=== PATIENT | female | born 1960 | race Caucasian/White ===

== ENCOUNTER 2018-04-24 17:09 | Outpatient (CLI) | payer MEDICARE ==
[2018-04-24 18:01] LABS: Anion Gap 16 mmol/L (10-20); BUN (Urea Nitrogen) 11 mg/dL (9.8-20.1); Calc. Creatinine Clearance 0 mL/min (70-130); Carbon Dioxide 22 mmol/L (22-29); Chloride 102 mmol/L (98-107); Estimated GFR-MDRD 59; Glucose 372 mg/dL (70-105); Potassium 4.1 mmol/L (3.5-5.1); Sodium 136 mmol/L (136-145)
--- NOTE | 2018-04-25 12:09 | EKG ---
Test Reason : Blood Pressure : / mmHG Vent. Rate : 093 BPM Atrial Rate : 093 BPM P-R Int : 170 ms QRS Dur : 080 ms QT Int : 378 ms P-R-T Axes : 056 -06 019 degrees QTc Int : 469 ms Normal sinus rhythm Minimal voltage criteria for LVH, may be normal variant Borderline ECG No previous ECGs available Confirmed by OSVALDO MASCORRO ([id number]) on 04/25/2018 12:09:02 PM Referred By: CYRUS Confirmed By:OSVALDO MASCORRO
== END 2018-04-24 17:10 | disposition home or self-care (01) ==
LOC: LABBT 17:09
PROVIDERS: ATTEND Internal Medicine Critical Care Medicine
DX: Z01.818 Encounter for other preprocedural examination (principal); R91.8 Other nonspecific abnormal finding of lung field
CPT/HCPCS: 80048; 93005; 93010

== ENCOUNTER 2018-04-26 06:07 | Day surgery (SDC) | payer MEDICARE ==
[2018-04-24 17:35] VITALS: BMI 45.5
[2018-04-26] MEDS ORDERED: EPINEPHrine 1 MG/ML AMP ONE (06:40)
[2018-04-26] MEDS ORDERED: Lidocaine 1% (PF) 30 ML VIAL ONE (06:44)
[2018-04-26] MEDS ORDERED: Lidocaine 4% PF 5 ML AMP NEB SCH (06:45)
[2018-04-26] MEDS ORDERED: Sodium Chloride 0.9% 1,000 ML IV SCH (06:45)
[2018-04-26] MEDS ORDERED: Midazolam HCl 2 mg/2 ml Vial ONE (07:05)
[2018-04-26] MEDS ORDERED: Fentanyl 100 MCG/2 ML VIAL ONE (07:05)
[2018-04-26] MEDS ORDERED: SUGAMMADEX SODIUM 200 MG/2 ML VIAL ONE (08:39)
--- NOTE | 2018-04-26 09:06 | OP ---
DATE OF PROCEDURE: 04/26/2018 SURGEON: Dr. Andrews Morfin PROCEDURE: Fiberoptic bronchoscopy. PREOPERATIVE DIAGNOSIS: Right middle lobe mass. POSTOPERATIVE DIAGNOSIS: Circumferential narrowing of the right middle lobe bronchus with distal mas s seen under fluoroscopy. ANESTHESIA: General endotracheal anesthesia. DESCRIPTION OF PROCEDURE: The patient was brought to the endoscopy suite and placed on cardiopulmona ry monitoring. She was intubated by Anesthesia with a GlideScope. Vocal cords were normal on the in tubation with an 8-0 endotracheal tube. Tube was secured at cm at the lip. An Olympus 2.0 bronchoscope was inserted into the endotracheal tube through an adapter while the richelle ent was on volume cycle ventilation. The paty had some mucoid secretions present, the left main st em bronchus, left upper lobe, and left lower lobe were normal in appearance. The right mainstem bron chus, right upper lobe, and right lower lobe were normal in appearance. The right middle lobe was ci rcumferentially narrowed from just distal to the takeoff down to the bifurcation the medial and later al subsegments. A series of transbronchial brushings and biopsies were done in the lateral segment u nder fluoroscopic guidance where the mass was clearly visible. Endobronchial biopsies were also obta ined in the narrowed segment of the right middle lobe. Washings were obtained afterwards. The patie nt tolerated the procedure well and was sent to the recovery area in stable condition.
[2018-04-26] MEDS ORDERED: Glycopyrrolate 0.2 MG/ML 5 ML SYRINGE ONE (15:31)
[2018-04-26] MEDS ORDERED: Lidocaine 1% PF 5 ML VIAL ONE (15:31)
[2018-04-26] MEDS ORDERED: PROPOFOL 200 MG/20 ML VIAL ONE (15:31)
[2018-04-26] MEDS ORDERED: Succinylcholine Chloride 20 MG/ML 10 ml SYRINGE FS ONE (15:31)
== END 2018-04-26 10:07 | disposition home or self-care (01) ==
LOC: SDC 06:07
PROVIDERS: ATTEND Internal Medicine Critical Care Medicine
PROC: 0BB58ZX Excision of Right Middle Lobe Bronchus, Via Natural or Artificial Opening Endoscopic, Diagnostic (ICD-10-PCS; principal; 2018-04-26)
PROC: 0BD58ZX Extraction of Right Middle Lobe Bronchus, Via Natural or Artificial Opening Endoscopic, Diagnostic (ICD-10-PCS; 2018-04-26)
PROC: 0BDD8ZX Extraction of Right Middle Lung Lobe, Via Natural or Artificial Opening Endoscopic, Diagnostic (ICD-10-PCS; 2018-04-26)
DX: J20.9 Acute bronchitis, unspecified (principal); J42 Unspecified chronic bronchitis; I10 Essential (primary) hypertension; E78.5 Hyperlipidemia, unspecified; K21.9 Gastro-esophageal reflux disease without esophagitis; E11.9 Type 2 diabetes mellitus without complications; E03.9 Hypothyroidism, unspecified; Z79.899 Other long term (current) drug therapy; Z79.82 Long term (current) use of aspirin; Z79.84 Long term (current) use of oral hypoglycemic drugs
CPT/HCPCS: 36416; 76000; 87070; 87205; 88104; 88112; 88305; J0171; J2001; J2250; J2704; J3010; J7620

== ENCOUNTER 2018-05-04 09:02 | Outpatient (CLI) | payer MEDICARE ==
--- NOTE | 2018-05-04 14:22 | PET ---
PET CT: HISTORY: Right hilar lung mass. TECHNIQUE: PET scanning with CT attenuation correction was performed from the base of the brain through the prox imal thighs following the intravenous administration of 12 mCi F18-FDG in the right antecubital fossa . Imaging was performed after an uptake interval of 86 minutes. COMPARISON: None. CORRELATION: None. FINDINGS: There is a focal area of increased FDG localization in the medial aspect of the right middle lobe (cl ose to the hilum) with adjacent atelectatic change. This has a SUV of 6.4. No anoop hypermetabolism is seen in the neck, axilla, mediastinum, left hilum, abdomen, or pelvis. No hypermetabolic liver, adrenal, or skeletal lesions are seen. There is physiologic activity in the GI and tracts, and the visualized portions of the brain. IMPRESSION: Right lung malignancy. No evidence of distant metastatic disease. POS: [facility]
== END 2018-05-04 09:03 | disposition home or self-care (01) ==
LOC: PET 09:02
PROVIDERS: ATTEND Internal Medicine Critical Care Medicine
DX: R91.1 Solitary pulmonary nodule (principal); C34.91 Malignant neoplasm of unspecified part of right bronchus or lung
CPT/HCPCS: 78815; A9552

== ENCOUNTER 2018-05-21 10:02 | Inpatient (IN) | payer MEDICARE ==
[2018-05-18 16:23] VITALS: BMI 45.5
[2018-05-21 10:51] LABS: #Basophils 0.1 thou/uL (0.0-0.2); #Eosinphils 0.6 thou/uL (0.0-0.7); #Monocytes 0.6 thou/uL (0.11-0.59); #Neutrophils 8.4 thou/uL (1.40-6.50); %Eosinophils 4.8 % (0.0-10.0); %Lymphocytes 23.2 % (21.0-51.0); %Monocytes 4.7 % (0.0-10.0); %Neutrophils 66.2 % (42.0-75.0); Hemoglobin 10.9 g/dL (12.0-16.0); Mean Corpuscular HGB CONC 32.4 g/dL (32.0-36.0); Mean Corpuscular Hemoglobin 25.6 pg (27.0-31.0); Mean Corpuscular Volume 78.8 fL (78.0-98.0); Mean Platelet Volume 6.6 fL (7.4-10.4); Platelet Count 388 thou/uL (130-400); RBC Distribution Width 15.9 % (11.5-14.5); Red Blood Cell (RBC) Count 4.26 mill/uL (4.20-5.40); White Blood Cell (WBC) Count 12.7 thou/uL (4.8-10.8)
[2018-05-21] MEDS ORDERED: Fentanyl 100 MCG/2 ML VIAL ONE ×2 (11:12→15:14)
[2018-05-21] MEDS ORDERED: Midazolam HCl 2 mg/2 ml Vial ONE (11:12)
[2018-05-21 11:13] LABS: Anion Gap 16 mmol/L (10-20); BUN (Urea Nitrogen) 24 mg/dL (9.8-20.1); Calc. Creatinine Clearance 122 mL/min (70-130); Calcium 9.2 mg/dL (7.8-10.44); Carbon Dioxide 22 mmol/L (22-29); Chloride 104 mmol/L (98-107); Estimated GFR-MDRD 64; Glucose 241 mg/dL (70-105); Potassium 3.9 mmol/L (3.5-5.1); Sodium 138 mmol/L (136-145)
[2018-05-21] MEDS ORDERED: Fentanyl/Bupivacaine 250 ML in Premix Bag 1 BAG EPIDURAL SCH (11:45)
[2018-05-21] MEDS ORDERED: Bupivacaine 0.25% 10 ML VIAL EPIDURAL PRN (11:45)
[2018-05-21] MEDS ORDERED: Fentanyl 250 MCG/5 ML VIAL ONE (11:46)
[2018-05-21] MEDS ORDERED: traMADol HCl 50 MG TAB PO PRN (12:00)
[2018-05-21] MEDS ORDERED: Promethazine HCl 25 MG/ML VIAL IM PRN ×2 (12:00→16:58)
[2018-05-21] MEDS ORDERED: Zolpidem Tartrate 5 MG TAB PO PRN (12:00)
[2018-05-21] MEDS ORDERED: HYDROcodone/Acetaminophen 5/325 mg Tablet PO PRN ×3 (12:00→17:28)
[2018-05-21] MEDS ORDERED: Hydrocerin (Eucerin) Cream 120 gm Jar TOP PRN (12:00)
[2018-05-21] MEDS ORDERED: diphenhydrAMINE 25 MG CAP PO PRN (12:00)
[2018-05-21] MEDS ORDERED: diphenhydrAMINE 50 MG/ML VIAL IVP PRN (12:00)
[2018-05-21] MEDS ORDERED: Naloxone HCl 0.4 mg/ml Vial IV PRN (12:00)
[2018-05-21] MEDS ORDERED: Ondansetron HCl/PF 4 MG/2 ML Vial IVP PRN ×3 (12:00→17:28)
[2018-05-21] MEDS ORDERED: Naloxone HCl 0.4 mg/ml Vial IVP PRN (12:00)
[2018-05-21] MEDS ORDERED: Promethazine HCl 25 MG SUPP PR PRN (12:00)
[2018-05-21] MEDS ORDERED: diphenhydrAMINE 50 MG/ML VIAL IM PRN (12:00)
[2018-05-21] MEDS ORDERED: Bupivacaine/Epinephrine 0.25% 30 ML VIAL ONE (12:44)
[2018-05-21] MEDS ORDERED: Ondansetron HCl/PF 4 MG/2 ML Vial ONE (12:45)
[2018-05-21] MEDS ORDERED: Labetalol HCl 100 MG/20 ML VIAL ONE (12:45)
[2018-05-21] MEDS ORDERED: Glycopyrrolate 0.2 MG/ML 5 ML SYRINGE ONE (12:45)
[2018-05-21] MEDS ORDERED: Dexamethasone 20 MG/5 ML VIAL ONE (12:45)
[2018-05-21] MEDS ORDERED: Lidocaine 1% PF 5 ML VIAL ONE (12:45)
[2018-05-21] MEDS ORDERED: PROPOFOL 200 MG/20 ML VIAL ONE (12:45)
[2018-05-21] MEDS ORDERED: PHENYLEPHRINE-NS 100 MCG/ML 10 ML SYRINGE ONE (12:45)
[2018-05-21] MEDS ORDERED: CEFAZOLIN/Water 2 GM/20 ML SYRINGE ONE (12:57)
[2018-05-21] MEDS ORDERED: Albuterol Sulfate HFA (OR ONLY) ONE (15:14)
[2018-05-21] MEDS ORDERED: Rocuronium Bromide 50 MG/5 ML VIAL ONE (15:57)
[2018-05-21] MEDS ORDERED: Promethazine HCl 25 MG/ML VIAL SLOW IVP PRN (16:58)
[2018-05-21] MEDS ORDERED: Phenylephrine 10 MG/NS 250 ML 250 ML IVPB PRN (17:28)
[2018-05-21] MEDS ORDERED: Fentanyl 100 MCG/2 ML VIAL SLOW IVP PRN (17:28)
[2018-05-21] MEDS: Ketorolac Tromethamine 30 MG/ML VIAL IVP PRN (18:05)
--- NOTE | 2018-05-21 18:06 | RAD ---
SINGLE VIEW CHEST: HISTORY: Status post thoracotomy. COMPARISON: None. FINDINGS: A single view of the chest shows an enlarged cardiomediastinal silhouette. There are two right-sided chest tubes. No pneumothorax is seen. Atelectasis in seen in both lung bases. IMPRESSION: 1. Status post right thoracotomy without evidence of pneumothorax. 2. Bibasilar atelectasis. 3. Cardiomegaly. POS: [facility]
[2018-05-21] MEDS: Sodium Chloride 0.9% 1,000 ML IV SCH (18:07)
[2018-05-21] MEDS: CEFAZOLIN/Water 2 GM/20 ML SYRINGE SLOW IVP SCH (21:21)
[2018-05-21] MEDS: Insulin Regular 300 UNITS/3 ML VIAL SC PRN (21:22)
--- NOTE | 2018-05-21 22:17 | OP ---
DATE OF PROCEDURE: 05/21/2018 PREOPERATIVE DIAGNOSIS: Right hilar mass. POSTOPERATIVE DIAGNOSIS: No obvious right hilar mass. SURGEON: Mitchel Dobbins M.D. ANESTHESIA: General. PROCEDURE: Right thoracoscopy/posterior lateral thoracotomy with right middle lobectomy and mediasti nal node dissection. SURGEON: Mitchel Dobbins M.D. ANESTHESIA: General. EBL: Less than 100. PROCEDURE IN DETAIL: After adequate anesthesia had been obtained with a double-lumen endotracheal tu be, which took multiple efforts by the anesthesiologist, the patient was placed in the left lateral d ecubitus position and padded. After prepping and draping, an 11 mm port was placed and the scope ins erted. Visualization of the lung demonstrated no gross abnormalities. Following this, it was decide d that full thoracotomy was most appropriate to ensure that a mass would not be missed. After muscle sparing thoracotomy, the chest was entered through the fifth intercostal space. Inferior pulmonary ligament was taken down. Node was sampled from the esophageal area as well as between the upper lobe and middle lobe bronchial takeoff. Following this exposure posteriorly, anterior exposure was benigno ed out mobilizing from the superior to the inferior pulmonary vein. The fissure was then partially t aken down to allow full visualization of the middle lobe bronchus. Middle lobe artery was then also visualized and there were no masses here. Lymph node was sent as a second lymph node specimen from t he hilar area. Following this, superior mediastinum had mobilization and the R4 region was skeletoni zed with lymph nodes. At this point, the fissure between the upper and middle lobe was begun to be m obilized as no masses could be palpated. There was some thickening in this fissure with induration, but no obvious mass. At this time, it was elected to go ahead and proceed with a right middle lobect elke as bronchoscopy had previously shown some narrowing of the middle lobe bronchus and subsequent PE T scan had shown that the patient was developing middle lobe syndrome with atelectasis. The bronchus to the middle lobe was divided with green load of cheo and then the pulmonary veins and the middl e lobe arteries were divided with two separate vascular firings. The fissure was then completed with green loads. This was then sent for permanent section. The bronchus was tested for leak and there was none. Two chest tubes were then placed following which the ribs were reapproximated with double- stranded catgut suture and the subcutaneous tissue and skin were closed. The patient is to be taken to the ICU in guarded condition.
[2018-05-22] MEDS: Ketorolac Tromethamine 30 MG/ML VIAL IVP PRN (00:44)
[2018-05-22] MEDS: Fentanyl 100 MCG/2 ML VIAL SLOW IVP PRN ×2 (01:10→04:33)
[2018-05-22] MEDS: HYDROcodone/Acetaminophen 5/325 mg Tablet PO PRN ×3 (02:11→21:40)
[2018-05-22] MEDS: CEFAZOLIN/Water 2 GM/20 ML SYRINGE SLOW IVP SCH (05:27)
[2018-05-22] MEDS: Levothyroxine 150 MCG TAB PO SCH (05:27)
[2018-05-22] MEDS: Sodium Chloride 0.9% 1,000 ML IV SCH ×2 (05:31→10:28)
[2018-05-22 05:41] LABS: #Lymphocytes 0.9 thou/uL (1.20-3.40); #Monocytes 0.7 thou/uL (0.11-0.59); %Basophils 0.1 % (0.0-1.0); %Eosinophils 0.1 % (0.0-10.0); %Lymphocytes 5.2 % (21.0-51.0); %Monocytes 3.9 % (0.0-10.0); %Neutrophils 90.8 % (42.0-75.0); Hemoglobin 9.5 g/dL (12.0-16.0); Mean Corpuscular HGB CONC 33.1 g/dL (32.0-36.0); Mean Corpuscular Hemoglobin 26.1 pg (27.0-31.0); Mean Corpuscular Volume 78.8 fL (78.0-98.0); Mean Platelet Volume 7.3 fL (7.4-10.4); Platelet Count 341 thou/uL (130-400); RBC Distribution Width 15.6 % (11.5-14.5); Red Blood Cell (RBC) Count 3.62 mill/uL (4.20-5.40); White Blood Cell (WBC) Count 17.6 thou/uL (4.8-10.8)
[2018-05-22 05:45] LABS: Anion Gap 14 mmol/L (10-20); BUN (Urea Nitrogen) 25 mg/dL (9.8-20.1); Calc. Creatinine Clearance 109 mL/min (70-130); Calcium 8.4 mg/dL (7.8-10.44); Carbon Dioxide 21 mmol/L (22-29); Chloride 100 mmol/L (98-107); Estimated GFR-MDRD 56; Glucose 523 mg/dL (70-105); Potassium 4.3 mmol/L (3.5-5.1); Sodium 131 mmol/L (136-145)
[2018-05-22] MEDS: Insulin Regular 300 UNITS/3 ML VIAL SC PRN ×4 (05:57→21:45)
[2018-05-22] MEDS ORDERED: Dextrose 50% Abboject 50 ML SYRINGE IVP PRN (10:29)
[2018-05-22] MEDS ORDERED: Dextrose 5% in Water 1,000 ML IV PRN (10:29)
[2018-05-22] MEDS: Insulin Glargine 30 UNITS in Pre-Filled Syringe 1 EACH SC SCH ×2 (10:33→21:44)
--- NOTE | 2018-05-22 11:23 | PRG ---
DATE OF SERVICE: 05/22/2018 SUBJECTIVE: Ms. Hicks was seen in the ICU this morning. She is status post thoracotomy yesterday. She did have a right middle lobectomy performed. She is doing well, has no acute complaints. PHYSICAL EXAMINATION: VITAL SIGNS: Temperature 97, pulse 87, blood pressure 131/59, and O2 sat 91% on room air, respirator y rate 15. She has a small air leak in her Pleur-evac. HEENT: Unremarkable. NECK: No JVD. LUNGS: Clear bilaterally. CARDIAC: S1 and S2, regular. ABDOMEN: Soft. EXTREMITIES: No edema. LABORATORY DATA: White blood cell count 17.6, hematocrit 28.6, platelet count 341. Sodium 131, pota ssium 4.3, chloride 100, CO2 of 21, BUN 25, creatinine 1.0. Glucose 521. ASSESSMENT: The patient is status post right middle lobectomy for a presumed lung mass. Interesting ly, the mass was not seen during the procedure yesterday. This could have been a right middle lobe s yndrome that was transient. PLAN: Continue chest tube drainage. I assume she can probably be transferred out to the floor. Blo od sugars need to be a great addressed with insulin.
--- NOTE | 2018-05-22 11:24 | RAD ---
AP VIEW CHEST: 05/22/2018 HISTORY: Status post thoracotomy. COMPARISON: 05/21/2018 FINDINGS: AP view chest demonstrates two right-sided chest tubes. Surgical clips are seen in the right hilar r egion. Mild cardiomegaly is seen. Pulmonary vascular congestion is seen. Subcutaneous emphysema is seen in the right chest wall. No significant interval changes noted since the previous exam. IMPRESSION: Stable anterior-posterior view of the chest with two right-sided chest tubes in place without evidenc e of pneumothorax. Surgical changes seen in the right hilar region. POS: [facility]
[2018-05-22] MEDS ORDERED: metFORMIN 500 MG TAB PO SCH (11:45)
[2018-05-22] MEDS: metFORMIN 500 MG TAB PO SCH (17:32)
[2018-05-23] MEDS ORDERED: Fentanyl/Bupivacaine 250 ML in Premix Bag 1 BAG EPIDURAL SCH (00:45)
[2018-05-23] MEDS: HYDROcodone/Acetaminophen 5/325 mg Tablet PO PRN ×4 (04:23→20:44)
[2018-05-23] MEDS: Fentanyl 100 MCG/2 ML VIAL SLOW IVP PRN (06:17)
[2018-05-23] MEDS: Levothyroxine 150 MCG TAB PO SCH (06:20)
[2018-05-23] MEDS: Insulin Regular 300 UNITS/3 ML VIAL SC PRN ×4 (06:23→21:45)
--- NOTE | 2018-05-23 08:18 | RAD ---
ONE VIEW CHEST: Comparison: 05-22-18 History: Thoracotomy. FINDINGS: Stable two right sided chest tubes. Stable right sided subcutaneous emphysema. No definite pneumothor ax. Chronic changes of the lung bases. IMPRESSION: No significant interval change. POS: [facility]
[2018-05-23] MEDS: Hydrochlorothiazide 25 MG TAB PO SCH (08:22)
[2018-05-23] MEDS: metFORMIN 500 MG TAB PO SCH ×2 (08:23→16:12)
[2018-05-23] MEDS ORDERED: Non-Formulary Item 1 EACH (Canagliflozin [Invokana] 300 MG) PO SCH (09:00)
--- NOTE | 2018-05-23 09:49 | PRG ---
DATE OF SERVICE: 05/23/2018. SUBJECTIVE: The patient is currently sleeping, does not appear to be in any distress. PHYSICAL EXAMINATION: VITAL SIGNS: Temperature is 99.7 with a T-max of 100.7, pulse 95, blood pressure 126/52, O2 sat 92%. HEENT: Unremarkable. NECK: No JVD. LUNGS: Clear anteriorly. Chest tube shows no air leak. CARDIOVASCULAR: S1 and S2 regular. ABDOMEN: Soft. EXTREMITIES: No edema. LABORATORY DATA: No labs were obtained today. ASSESSMENT: 1. Status post right middle lobectomy. Pathology is pending. 2. Grossly elevated blood sugar. PLAN: 1. The patient is back on her Lantus insulin. Hopefully, that will equilibrate today. 2. Anticipate her being transferred out to the surgical floor today. Increase activity as tolerated .
[2018-05-23 10:56] LABS: Hemoglobin A1c 11.4 % (4.0-6.0)
[2018-05-23] MEDS: Insulin Glargine 30 UNITS in Pre-Filled Syringe 1 EACH SC SCH ×2 (11:39→21:44)
[2018-05-24] MEDS: HYDROcodone/Acetaminophen 5/325 mg Tablet PO PRN ×5 (00:59→20:18)
[2018-05-24] MEDS: Levothyroxine 150 MCG TAB PO SCH (06:07)
[2018-05-24] MEDS: Insulin Regular 300 UNITS/3 ML VIAL SC PRN ×4 (06:35→21:36)
--- NOTE | 2018-05-24 07:39 | RAD ---
UPRIGHT PORTABLE CHEST 1 VIEW: HISTORY: A 58-year-old female status post thoracotomy. FINDINGS: Right chest tube in place with postop changes in the right chest with minimal subcutaneous emphysema. Patchy parenchymal changes in the right perihilar region and right lower lobe appear somewhat more marked than on the prior study, particularly in the right infrahilar region raising concern for the p ossibility of some developing atelectasis or pneumonia. Blunting of the left costophrenic angle. IMPRESSION: Pleural and parenchymal opacity changes bilaterally showing some more confluent-appearing parenchymal changes in the right infrahilar region raising concern for the possibility of some atelectasis or de veloping pneumonia. No significant pneumothorax. Stable left chest. Continue short-term followup. POS: [facility]
[2018-05-24] MEDS: [UNRECOGNIZED DRUG - OTHER] EPIDURAL SCH (08:20)
[2018-05-24] MEDS: FENTANYL CITRATE EPIDURAL SCH (08:20)
[2018-05-24] MEDS: BUPIVACAINE EPIDURAL SCH (08:20)
[2018-05-24] MEDS: Insulin Glargine 30 UNITS in Pre-Filled Syringe 1 EACH SC SCH (08:25)
[2018-05-24] MEDS: Hydrochlorothiazide 25 MG TAB PO SCH (08:25)
[2018-05-24] MEDS: metFORMIN 500 MG TAB PO SCH ×2 (08:25→17:32)
--- NOTE | 2018-05-24 10:29 | PRG ---
DATE OF SERVICE: 05/24/2018 She is complaining of pain in her surgical site. PHYSICAL EXAMINATION: VITAL SIGNS: Temperature 98.5, pulse 92, respirations 15, O2 sat 95%, blood pressure 112/61. HEENT: Unremarkable. NECK: No JVD. LUNGS: Fairly clear anteriorly. CARDIOVASCULAR: S1 and S2 regular. ABDOMEN: Soft. EXTREMITIES: No edema. Her path report is pending. ASSESSMENT: 1. Status post right middle lobectomy. 2. Stable pulmonary status. PLAN: Awaiting results of the surgical pathology. Also, awaiting removal of chest tube.
[2018-05-24] MEDS ORDERED: Furosemide 20 MG TAB PO SCH (13:45)
[2018-05-24] MEDS: Insulin Glargine 40 UNITS in Pre-Filled Syringe 1 EACH SC SCH (21:36)
[2018-05-25] MEDS: HYDROcodone/Acetaminophen 5/325 mg Tablet PO PRN ×4 (00:10→20:24)
[2018-05-25] MEDS: Levothyroxine 150 MCG TAB PO SCH (06:04)
[2018-05-25] MEDS: [UNRECOGNIZED DRUG - OTHER] EPIDURAL SCH (07:56)
[2018-05-25] MEDS: FENTANYL CITRATE EPIDURAL SCH (07:56)
[2018-05-25] MEDS: BUPIVACAINE EPIDURAL SCH (07:56)
[2018-05-25] MEDS: metFORMIN 500 MG TAB PO SCH ×2 (07:57→17:09)
[2018-05-25] MEDS: Insulin Glargine 40 UNITS in Pre-Filled Syringe 1 EACH SC SCH ×2 (09:00→20:25)
[2018-05-25] MEDS: Hydrochlorothiazide 25 MG TAB PO SCH (09:01)
--- NOTE | 2018-05-25 09:49 | PRG ---
DATE OF SERVICE: 05/25/2018 The patient is doing well and has no complaints. Her pathology report is requiring outside consultat ion because an irregular area in the right middle lobe. PHYSICAL EXAMINATION: VITAL SIGNS: Temperature is 97.7, pulse 79, respiration 16, O2 sat 92%. HEENT: Unremarkable. NECK: No JVD. CHEST: Clear. CARDIAC: S1 and S2 regular. ABDOMEN: Soft. EXTREMITIES: No edema. ASSESSMENT: Stable pulmonary status. PLAN: 1. Awaiting pathology from [facility]. 2. Patient will probably be discharged over the weekend.
--- NOTE | 2018-05-25 11:46 | RAD ---
SINGLE VIEW OF THE CHEST: COMPARISON: 05/24/18. HISTORY: Status post thoracotomy. FINDINGS: A single view of the chest shows an enlarged cardiomediastinal silhouette. There is a right-sided ch est tube without evidence of pneumothorax. There is improvement in the opacity on the right heart robert rder. However, there are still opacities projecting over the upper thorax which could represent atel ectasis. IMPRESSION: Status post right thoracotomy without evidence of pneumothorax. POS: [facility]
[2018-05-25] MEDS ORDERED: Furosemide 40 MG TAB PO SCH (13:15)
[2018-05-25] MEDS ORDERED: Furosemide 20 MG TAB PO SCH (13:15)
[2018-05-26] MEDS: HYDROcodone/Acetaminophen 5/325 mg Tablet PO PRN ×5 (00:37→20:08)
[2018-05-26 05:38] LABS: Anion Gap 12 mmol/L (10-20); BUN (Urea Nitrogen) 20 mg/dL (9.8-20.1); Calc. Creatinine Clearance 138 mL/min (70-130); Calcium 8.8 mg/dL (7.8-10.44); Carbon Dioxide 31 mmol/L (22-29); Chloride 97 mmol/L (98-107); Estimated GFR-MDRD 73; Glucose 86 mg/dL (70-105); Potassium 3.4 mmol/L (3.5-5.1); Sodium 137 mmol/L (136-145)
[2018-05-26] MEDS: Levothyroxine 150 MCG TAB PO SCH (06:10)
[2018-05-26] MEDS ORDERED: Furosemide 40 MG TAB PO SCH ×2 (07:30)
--- NOTE | 2018-05-26 07:48 | RAD ---
PORTABLE CHEST: Date: 05/26/18 PROVIDED CLINICAL HISTORY: Post middle lobectomy. FINDINGS: Comparison made with exam dated 05/25/18. The more inferiorly located of the two right-sided chest tubes demonstrates the proximal side hole jean pierre cency peripheral to the right ribs. The more superior chest tube appears unchanged in position. Addit ional significant interval change with respect to the prior examination is not apparent. Curvilinear lucency at the right lung base could reflect a loculated focus of pleural gas. IMPRESSION: Chest tube positioning as above. CODE T. POS: [facility]
[2018-05-26] MEDS: Hydrochlorothiazide 25 MG TAB PO SCH (08:34)
[2018-05-26] MEDS: metFORMIN 500 MG TAB PO SCH ×2 (08:34→16:51)
[2018-05-26] MEDS: FENTANYL CITRATE EPIDURAL SCH (08:35)
[2018-05-26] MEDS: [UNRECOGNIZED DRUG - OTHER] EPIDURAL SCH (08:35)
[2018-05-26] MEDS: Insulin Glargine 40 UNITS in Pre-Filled Syringe 1 EACH SC SCH ×2 (08:35→21:17)
[2018-05-26] MEDS: BUPIVACAINE EPIDURAL SCH (08:35)
[2018-05-26] MEDS: traMADol HCl 50 MG TAB PO PRN ×2 (12:17→18:12)
[2018-05-26] MEDS: Insulin Regular 300 UNITS/3 ML VIAL SC PRN ×2 (12:36→16:52)
[2018-05-26] MEDS: Ketorolac Tromethamine 30 MG/ML VIAL IVP SCH ×2 (14:44→20:09)
[2018-05-26] MEDS ORDERED: Morphine 4 MG/ML VIAL SLOW IVP PRN (15:33)
[2018-05-26] MEDS: Morphine 4 MG/ML VIAL SLOW IVP PRN (15:46)
[2018-05-27] MEDS: HYDROcodone/Acetaminophen 5/325 mg Tablet PO PRN ×6 (00:21→23:02)
[2018-05-27] MEDS: Ketorolac Tromethamine 30 MG/ML VIAL IVP SCH ×4 (01:37→20:50)
[2018-05-27] MEDS: Morphine 4 MG/ML VIAL SLOW IVP PRN ×2 (01:38→07:47)
[2018-05-27] MEDS: Levothyroxine 150 MCG TAB PO SCH (06:01)
[2018-05-27] MEDS: Hydrochlorothiazide 25 MG TAB PO SCH (07:47)
[2018-05-27] MEDS: metFORMIN 500 MG TAB PO SCH ×2 (07:48→15:49)
[2018-05-27] MEDS: Insulin Glargine 40 UNITS in Pre-Filled Syringe 1 EACH SC SCH ×2 (07:48→20:50)
--- NOTE | 2018-05-27 08:46 | RAD ---
PORTABLE CHEST: Date: 05/27/18 PROVIDED CLINICAL HISTORY: Post middle lobectomy. FINDINGS: Comparison with 05/26/18. Interval improvement in aeration at the left lung base. Repositioning of the more inferiorly located chest tubes with the proximal side hole lucency projecting medial to the chest wall on the current st udy. Additional significant interval change with respect to the prior examination is not apparent. IMPRESSION: As above. POS: [facility]
[2018-05-27] MEDS: traMADol HCl 50 MG TAB PO PRN (12:35)
[2018-05-27] MEDS: Insulin Regular 300 UNITS/3 ML VIAL SC PRN (15:49)
[2018-05-28] MEDS: Ketorolac Tromethamine 30 MG/ML VIAL IVP SCH ×2 (01:39→08:07)
[2018-05-28] MEDS: HYDROcodone/Acetaminophen 5/325 mg Tablet PO PRN (04:08)
[2018-05-28 04:28] VITALS: TEMP 97.8
[2018-05-28] MEDS: Levothyroxine 150 MCG TAB PO SCH (05:21)
[2018-05-28 08:05] VITALS: BP 102/43
[2018-05-28] MEDS: metFORMIN 500 MG TAB PO SCH (08:07)
[2018-05-28] MEDS: Hydrochlorothiazide 25 MG TAB PO SCH (08:08)
[2018-05-28] MEDS: Insulin Glargine 40 UNITS in Pre-Filled Syringe 1 EACH SC SCH (08:09)
--- NOTE | 2018-05-28 08:12 | PRG ---
DATE OF SERVICE: 05/28/2018 The patient is doing well, had no complaints. PHYSICAL EXAMINATION: VITAL SIGNS: Temperature 97.8, pulse 83, respiration 16, O2 sat 93%, blood pressure 138/63. HEENT: Unremarkable. NECK: No JVD. LUNGS: Clear. CARDIAC: S1 and S2 regular. ABDOMEN: Soft. EXTREMITIES: No edema. Pathology report showed negative lymph nodes, but she had a mass measuring 2.4 x 1.2 x 0.8 that was n ot identified by pathology and has been sent to [facility] for further evaluation. ASSESSMENT: Status post resection of lung mass. Chest tube is out and her chest x-ray looks fine. PLAN: Probably going home today. It will probably be a week before we know the final pathology resu lts.
--- NOTE | 2018-05-28 09:26 | RAD ---
PORTABLE CHEST: Date: 05/28/18 HISTORY: Post thoracotomy. COMPARISON: 05/27/18. FINDINGS: Heart size is enlarged. Pleural changes and some parenchymal change in the bases are similar to the p rior exam. Right-sided chest tubes have been removed. I see no signs of pneumothorax. Postoperative c hanges of the right hilar region are seen. IMPRESSION: Interval removal of right chest tubes. No signs of pneumothorax. POS: [facility]
--- NOTE | 2018-05-28 10:26 | DIS ---
DATE OF ADMISSION: 05/21/2018 DATE OF DISCHARGE: 05/28/2018 PRINCIPAL DIAGNOSIS: Right middle lobe mass. PROCEDURES PERFORMED: Right thoracoscopy followed by posterolateral thoracotomy and right middle lob ectomy and mediastinal lymph node dissection, 05/21/2018. HISTORY OF PRESENT ILLNESS AND HOSPITAL COURSE: The patient is a 58-year-old woman, who developed co ugh while traveling in [place]. A chest x-ray and then a chest CT suggested a right hilar mass. She had no other stigmata of malignancy and no particular risk factors other than being 58 years old. Evaluation until that point had not been able to identify the nature of this mass. At thoracoscopy , no mass could be visualized and the procedure was converted to conventional posterolateral thoracot elke. Again, no hilar mass could be identified, but there was some vague thickening in the middle lob e, and upon sectioning, there is a poorly circumscribed mass, measuring 2.4 x 1.2 x 0.8 cm. The exci sed lymph nodes were negative for malignancy. There are some chronic inflammatory changes in the res ected lung, but even at the time of discharge, the exact nature of that "irregular lesional area" is unclear and diagnosis is being deferred pending an outside consultation with [facility]. The patien t had a fairly uneventful postoperative recovery promptly sealing or air leak. She did have modestly elevated chest tube outputs for several days. Her chest tubes were removed on postoperative day #6, and today on postoperative day #7, her chest x-ray shows good expansion and her oxygen saturations a re adequate on room air. We will send her home today with a prescription for Vicodin as needed for p ain and we will plan on seeing her back at about the two-week postop villa.
== END 2018-05-28 10:50 | disposition home or self-care (01) | DRG 164 ==
LOC: SURG A 10:02 → CCU 17:36 → SJJU 05-23 10:27
PROVIDERS: ADMIT Thoracic Surgery (Cardiothoracic Vascular Surgery); ATTEND Thoracic Surgery (Cardiothoracic Vascular Surgery)
PROC: 0BTD0ZZ Resection of Right Middle Lung Lobe, Open Approach (ICD-10-PCS; principal; 2018-05-21)
PROC: 07B70ZX Excision of Thorax Lymphatic, Open Approach, Diagnostic (ICD-10-PCS; 2018-05-21)
DX: C34.10 Malignant neoplasm of upper lobe, unspecified bronchus or lung (principal); Z68.42 Body mass index [BMI] 45.0-49.9, adult; E11.65 Type 2 diabetes mellitus with hyperglycemia; Z79.4 Long term (current) use of insulin; S93.401A Sprain of unspecified ligament of right ankle, initial encounter; E03.9 Hypothyroidism, unspecified; I10 Essential (primary) hypertension; Z79.899 Other long term (current) drug therapy; Z79.84 Long term (current) use of oral hypoglycemic drugs; Z79.82 Long term (current) use of aspirin; W01.0XXA Fall on same level from slipping, tripping and stumbling without subsequent striking against object, initial encounter
CPT/HCPCS: 36415; 36416; 71045; 80048; 83036; 85025; 86850; 86900; 86901; 88305; 88307; 88331; 88341; 88342; A4216; G8978-GP-CL; G8979-GP-CJ; J0131; J1100; J1642; J1885; J2001; J2250; J2270; J2405; J2704; J3010; J7050

== ENCOUNTER 2018-06-21 13:05 | Outpatient (CLI) | payer MEDICARE ==
--- NOTE | 2018-06-21 14:38 | RAD ---
CHEST 2 VIEWS: HISTORY: Lung cancer. COMPARISON: 05/28/2018. FINDINGS: Cardiac silhouette is upper limits of normal in size. Pulmonary vasculature is also upper limits of normal. Mediastinum midline with postoperative changes of the right hilum and calcification in the a parveen. New oval mass-like area projects posterior to the left cardiac margin on the frontal view, not well d efined on the lateral view. Bilateral pleural fluid, right greater than left. No evidence of pneumo thorax. IMPRESSION: 1. Mass-like area projecting over the left lung on the frontal view may represent loculated pleural fluid given its rapid appearance. Additional bilateral pleural fluid is also evident. 2. Postoperative changes right hilum. 3. Atherosclerosis. POS: [facility]
== END 2018-06-21 13:06 | disposition home or self-care (01) ==
LOC: RAD 13:05
PROVIDERS: ATTEND Thoracic Surgery (Cardiothoracic Vascular Surgery)
DX: C34.10 Malignant neoplasm of upper lobe, unspecified bronchus or lung (principal); I70.0 Atherosclerosis of aorta; R93.89 Abnormal findings on diagnostic imaging of other specified body structures; Z98.890 Other specified postprocedural states
CPT/HCPCS: 71046

== ENCOUNTER 2018-06-28 08:58 | Outpatient (CLI) | payer MEDICARE ==
--- NOTE | 2018-06-28 10:20 | RAD ---
CHEST TWO VIEWS: INDICATIONS: Dyspnea. COMPARISON: 06/21/2018 FINDINGS: Persistent left perihilar mass-like opacity remains with pleural-based density at the inferior left c hest. There is a stable appearance of the right lung with a prominent postoperative right perihilar region and mild pleural-based density. Linear density of the lateral right lower lung zone is stable . IMPRESSION: Stable chest with persistent mass-like prominence of the left perihilar region. CT thorax may be obt ained as clinically necessary, given the persistence of this finding. POS: [facility]
== END 2018-06-28 08:59 | disposition home or self-care (01) ==
LOC: RAD 08:58
PROVIDERS: ATTEND Internal Medicine Critical Care Medicine
DX: R06.00 Dyspnea, unspecified (principal); J18.9 Pneumonia, unspecified organism
CPT/HCPCS: 36415; 71046; 80053; 82164; 83520; 83880; 85025; 85652; 86256

== ENCOUNTER 2018-07-26 10:24 | Outpatient (CLI) | payer MEDICARE ==
--- NOTE | 2018-07-26 12:18 | RAD ---
2 VIEW CHEST: Date: 07/26/18 COMPARISON: 06/28/18. CLINICAL HISTORY: Dyspnea. FINDINGS: There has been interval decrease in confluence of previously described left perihilar mass-like opaci ty with faint residual opacity remaining of this region. There is persistent pleural based density at the inferior left chest. Slight blunting of the right costophrenic sulcus is noted. IMPRESSION: Interval decrease in confluence of mass-like opacity of the left perihilar region, with mild residua remaining. Follow-up to complete resolution is recommended. POS: [facility]
== END 2018-07-26 10:25 | disposition home or self-care (01) ==
LOC: RAD 10:24
PROVIDERS: ATTEND Internal Medicine Critical Care Medicine
DX: R06.00 Dyspnea, unspecified (principal)
CPT/HCPCS: 71046

== ENCOUNTER 2019-01-01 14:17 | Outpatient (CLI) | payer MEDICARE ==
--- NOTE | 2019-01-01 15:19 | RAD ---
CHEST TWO VIEWS: HISTORY: Dyspnea. COMPARISON: Radiograph from 07/26/2018. FINDINGS: Moderate layering bilateral pleural effusions, similar. Heart size is enlarged. Surgical clips minda g the right hilum. No pneumothorax. No acute osseous abnormality. IMPRESSION: Unchanged examination of the chest. POS: [facility]
== END 2019-01-01 14:18 | disposition home or self-care (01) ==
LOC: RAD 14:17
PROVIDERS: ATTEND Internal Medicine Critical Care Medicine
DX: R06.00 Dyspnea, unspecified (principal)
CPT/HCPCS: 71046

== ENCOUNTER 2022-01-22 05:10 | Inpatient (IN) | payer MEDICARE ==
[2022-01-22] MEDS ORDERED: Promethazine HCl 25 MG/ML VIAL IM PRN ×2 (07:32→15:56)
[2022-01-22] MEDS ORDERED: Ondansetron PF 4 MG/2 ML Vial IVP PRN ×2 (07:32→15:56)
[2022-01-22] MEDS ORDERED: Morphine 2 MG/ML VIAL SLOW IVP PRN (07:32)
[2022-01-22] MEDS ORDERED: hydrALAZINE 20 MG/ML VIAL SLOW IVP PRN (07:32)
[2022-01-22] MEDS: Famotidine/PF 20 mg/2ml Vial SLOW IVP SCH ×2 (12:39→20:09)
[2022-01-22] MEDS: Acetaminophen 500 MG TAB PO SCH ×2 (13:16→18:13)
[2022-01-22 13:21] VITALS: BMI 41.9
[2022-01-22] MEDS ORDERED: Morphine 2 MG/ML VIAL SLOW IVP SCH (13:51)
[2022-01-22] MEDS ORDERED: Dextrose 5% in Water 1,000 ML IV PRN (13:52)
[2022-01-22] MEDS ORDERED: Senokot 8.6 MG TAB PO PRN (13:52)
[2022-01-22] MEDS ORDERED: Dextrose 50% Abboject 50 ML SYRINGE SLOW IVP PRN (13:52)
[2022-01-22] MEDS ORDERED: Ketorolac Tromethamine 30 MG/ML VIAL IVP SCH (14:00)
[2022-01-22] MEDS ORDERED: traMADol HCl 50 MG TAB PO SCH (14:00)
[2022-01-22] MEDS: HumaLOG 300 UNITS/3 ML VIAL SC PRN ×3 (14:29→20:12)
[2022-01-22 14:42] LABS: #Basophils 0.1 thou/uL (0.0-0.2); #Eosinphils 0.4 thou/uL (0.0-0.7); #Lymphocytes 1.8 thou/uL (1.20-3.40); #Monocytes 0.7 thou/uL (0.11-0.59); %Basophils 0.6 % (0.0-1.0); %Lymphocytes 15.1 % (21.0-51.0); %Monocytes 5.9 % (0.0-10.0); %Neutrophils 75.4 % (42.0-75.0); Hemoglobin 11.1 g/dL (12.0-16.0); Mean Corpuscular Hemoglobin 25.7 pg (27.0-31.0); Mean Corpuscular Volume 80.4 fL (78.0-98.0); Mean Platelet Volume 7.5 fL (7.4-10.4); Platelet Count 260 thou/uL (130-400); RBC Distribution Width 16.6 % (11.5-14.5); White Blood Cell (WBC) Count 11.9 thou/uL (4.8-10.8)
[2022-01-22 15:04] LABS: Anion Gap 20 mmol/L (10-20); BUN (Urea Nitrogen) 32 mg/dL (9.8-20.1); Calc. Creatinine Clearance 80 mL/min (70-130); Calcium 8.7 mg/dL (7.8-10.44); Carbon Dioxide 19 mmol/L (23-31); Chloride 103 mmol/L (98-107); Glucose 280 mg/dL (80-115); Magnesium 2.2 mg/dL (1.6-2.6); Phosphorus 4.8 mg/dL (2.3-4.7); Potassium 4.9 mmol/L (3.5-5.1); Sodium 137 mmol/L (136-145)
[2022-01-22] MEDS: Cyclobenzaprine 10 MG TAB PO PRN (15:22)
[2022-01-22] MEDS ORDERED: diphenhydrAMINE 25 MG CAP PO PRN (15:56)
[2022-01-22] MEDS ORDERED: diphenhydrAMINE 50 MG/ML VIAL IVP PRN (15:56)
[2022-01-22] MEDS ORDERED: Naloxone HCl 0.4 mg/ml Vial IV PRN (15:56)
[2022-01-22] MEDS ORDERED: HYDROmorphone 10 mg/100 ml CADD IVPB PRN (15:56)
[2022-01-22] MEDS ORDERED: diphenhydrAMINE 50 MG/ML VIAL IM PRN (15:56)
[2022-01-22] MEDS ORDERED: Zolpidem Tartrate 5 MG TAB PO PRN (15:56)
[2022-01-22] MEDS ORDERED: Communication Order-Pharmacy FS SCH (16:00)
[2022-01-22 18:53] LABS: SARS-CoV-2 PCR by NAA Not Detected (NotDetected)
[2022-01-22] MEDS: Ketorolac Tromethamine 30 MG/ML VIAL IVP SCH (20:10)
[2022-01-22] MEDS: Atorvastatin Calcium 40 MG TAB PO SCH (20:11)
[2022-01-22] MEDS: Melatonin 3 MG TAB PO SCH (20:11)
[2022-01-22] MEDS: Insulin Glargine 30 UNITS/0.3 ML VIAL SC SCH (20:12)
[2022-01-22] MEDS ORDERED: Insulin Glargine 30 UNITS/0.3 ML VIAL SC SCH ×2 (21:00)
[2022-01-22] MEDS: Sodium Chloride 0.9% 1,000 ML IV SCH (22:00)
[2022-01-23] MEDS: HumaLOG 300 UNITS/3 ML VIAL SC PRN ×5 (00:15→20:08)
[2022-01-23] MEDS: Acetaminophen 500 MG TAB PO SCH ×2 (02:00→06:30)
[2022-01-23] MEDS: Ketorolac Tromethamine 30 MG/ML VIAL IVP SCH (02:00)
[2022-01-23] MEDS: Sodium Chloride 0.9% 1,000 ML IV SCH ×3 (06:00→23:00)
[2022-01-23] MEDS: Levothyroxine Sodium 125 MCG TAB PO SCH (06:30)
[2022-01-23 06:51] LABS: #Basophils 0.1 thou/uL (0.0-0.2); #Eosinphils 0.7 thou/uL (0.0-0.7); #Lymphocytes 1.4 thou/uL (1.20-3.40); #Monocytes 0.6 thou/uL (0.11-0.59); #Neutrophils 11.9 thou/uL (1.40-6.50); %Basophils 0.5 % (0.0-1.0); %Eosinophils 5.1 % (0.0-10.0); %Lymphocytes 9.6 % (21.0-51.0); %Monocytes 3.9 % (0.0-10.0); Hemoglobin 9.7 g/dL (12.0-16.0); Mean Corpuscular HGB CONC 32.5 g/dL (32.0-36.0); Mean Corpuscular Hemoglobin 26.4 pg (27.0-31.0); Mean Corpuscular Volume 81.1 fL (78.0-98.0); Mean Platelet Volume 6.8 fL (7.4-10.4); Platelet Count 319 thou/uL (130-400); RBC Distribution Width 16.6 % (11.5-14.5); Red Blood Cell (RBC) Count 3.67 mill/uL (4.20-5.40); White Blood Cell (WBC) Count 14.7 thou/uL (4.8-10.8)
[2022-01-23] MEDS ORDERED: fentaNYL Citrate/PF 100 MCG/2 ML SYRINGE ONE (07:19)
[2022-01-23 07:34] LABS: Anion Gap 17 mmol/L (10-20); BUN (Urea Nitrogen) 44 mg/dL (9.8-20.1); Calc. Creatinine Clearance 41 mL/min (70-130); Calcium 8.1 mg/dL (7.8-10.44); Carbon Dioxide 20 mmol/L (23-31); Chloride 102 mmol/L (98-107); Glucose 243 mg/dL (80-115); Potassium 4.3 mmol/L (3.5-5.1); Sodium 135 mmol/L (136-145)
[2022-01-23] MEDS ORDERED: ceFAZolin (BATCH) 2 GM/100 ML BAG ONE (07:49)
[2022-01-23 07:52] LABS: Phosphorus 6.1 mg/dL (2.3-4.7)
[2022-01-23] MEDS ORDERED: ceFAZolin (BATCH) 2 GM in Premix Bag 1 BAG IVPB SCH (08:00)
[2022-01-23] MEDS: Famotidine/PF 20 mg/2ml Vial SLOW IVP SCH (08:01)
[2022-01-23] MEDS: Polyethylene Glycol 3350 17 GM Packet PO SCH (08:01)
[2022-01-23] MEDS ORDERED: Phenylephrine 10 MG/ML VIAL ONE (08:07)
[2022-01-23] MEDS ORDERED: Glycopyrrolate 0.2 MG/ML 5 ML SYRINGE ONE (08:10)
[2022-01-23] MEDS ORDERED: PROPOFOL 200 MG/20 ML VIAL ONE (08:10)
[2022-01-23] MEDS ORDERED: Lidocaine 1% PF 5 ML VIAL ONE (08:10)
[2022-01-23] MEDS ORDERED: Rocuronium Bromide 10 MG/ML (10ML VIAL) ONE (08:10)
[2022-01-23] MEDS ORDERED: Ketorolac Tromethamine 30 MG/ML VIAL ONE (08:10)
[2022-01-23] MEDS ORDERED: Ondansetron PF 4 MG/2 ML Vial ONE (08:10)
[2022-01-23] MEDS ORDERED: HYDROmorphone 2 MG/ML VIAL SLOW IVP PRN (09:47)
[2022-01-23] MEDS ORDERED: PACU-Morphine 4MG/ML VIAL SLOW IVP PRN (09:47)
[2022-01-23] MEDS ORDERED: Promethazine HCl 25 MG/ML VIAL IM PRN (09:47)
[2022-01-23] MEDS ORDERED: Promethazine HCl 25 MG/ML VIAL IVPB PRN (09:47)
[2022-01-23] MEDS ORDERED: Ondansetron HCl/PF 4 MG/2 ML Vial IVP PRN (09:47)
[2022-01-23] MEDS ORDERED: HYDROmorphone 0.5 MG/0.5 ML SYRINGE ONE ×2 (09:53→10:01)
[2022-01-23] MEDS ORDERED: Sodium Chloride 0.9% 1,000 ML IV SCH (10:15)
[2022-01-23] MEDS: Acetaminophen/Codeine 30-300mg Tablet PO SCH ×2 (11:14→17:19)
[2022-01-23] MEDS ORDERED: Gabapentin 100 MG CAP PO SCH (15:00)
[2022-01-23] MEDS: Morphine 2 MG/ML VIAL SLOW IVP PRN ×2 (15:26→20:03)
[2022-01-23] MEDS: ceFAZolin (BATCH) 2 GM in Premix Bag 1 BAG IVPB SCH (15:27)
[2022-01-23] MEDS: Cyclobenzaprine 10 MG TAB PO PRN (17:19)
[2022-01-23] MEDS: Atorvastatin Calcium 40 MG TAB PO SCH (20:08)
[2022-01-23] MEDS: Melatonin 3 MG TAB PO SCH (20:09)
[2022-01-23] MEDS: Insulin Glargine 30 UNITS/0.3 ML VIAL SC SCH (20:09)
[2022-01-24] MEDS: HumaLOG 300 UNITS/3 ML VIAL SC PRN ×3 (00:30→20:40)
[2022-01-24] MEDS: Acetaminophen/Codeine 30-300mg Tablet PO SCH ×4 (00:30→18:15)
[2022-01-24] MEDS: Cyclobenzaprine 10 MG TAB PO PRN ×2 (00:34→15:56)
[2022-01-24] MEDS: ceFAZolin (BATCH) 2 GM in Premix Bag 1 BAG IVPB SCH (01:30)
[2022-01-24] MEDS: Morphine 2 MG/ML VIAL SLOW IVP PRN ×2 (01:35→20:05)
[2022-01-24] MEDS: Sodium Chloride 0.9% 1,000 ML IV SCH ×2 (02:30→18:23)
[2022-01-24] MEDS: Levothyroxine Sodium 125 MCG TAB PO SCH (05:50)
[2022-01-24 07:08] LABS: #Basophils 0.1 thou/uL (0.0-0.2); #Eosinphils 0.7 thou/uL (0.0-0.7); #Lymphocytes 1.6 thou/uL (1.20-3.40); #Monocytes 0.6 thou/uL (0.11-0.59); #Neutrophils 8.2 thou/uL (1.40-6.50); %Basophils 0.8 % (0.0-1.0); %Eosinophils 6.6 % (0.0-10.0); %Lymphocytes 14.1 % (21.0-51.0); %Neutrophils 73.5 % (42.0-75.0); Hemoglobin 8.1 g/dL (12.0-16.0); Mean Corpuscular Hemoglobin 26.8 pg (27.0-31.0); Mean Corpuscular Volume 81.3 fL (78.0-98.0); Mean Platelet Volume 6.9 fL (7.4-10.4); Platelet Count 276 thou/uL (130-400); RBC Distribution Width 16.2 % (11.5-14.5); Red Blood Cell (RBC) Count 3.02 mill/uL (4.20-5.40); White Blood Cell (WBC) Count 11.1 thou/uL (4.8-10.8)
[2022-01-24 07:38] LABS: Anion Gap 14 mmol/L (10-20); BUN (Urea Nitrogen) 35 mg/dL (9.8-20.1); Calc. Creatinine Clearance 60 mL/min (70-130); Calcium 7.4 mg/dL (7.8-10.44); Carbon Dioxide 20 mmol/L (23-31); Chloride 106 mmol/L (98-107); Glucose 210 mg/dL (80-115); Magnesium 1.9 mg/dL (1.6-2.6); Phosphorus 3.8 mg/dL (2.3-4.7); Potassium 3.9 mmol/L (3.5-5.1); Sodium 136 mmol/L (136-145)
[2022-01-24] MEDS: Polyethylene Glycol 3350 17 GM Packet PO SCH (10:01)
[2022-01-24] MEDS ORDERED: Morphine 2 MG/ML VIAL SLOW IVP PRN (11:14)
[2022-01-24] MEDS ORDERED: traMADol HCl 50 MG TAB PO SCH (12:00)
[2022-01-24] MEDS: Heparin 5,000 UNITS/ML VIAL SC SCH ×2 (15:46→20:05)
[2022-01-24] MEDS: Insulin Glargine 30 UNITS/0.3 ML VIAL SC SCH (20:05)
[2022-01-24] MEDS: Atorvastatin Calcium 40 MG TAB PO SCH (20:06)
[2022-01-24] MEDS: Melatonin 3 MG TAB PO SCH (20:06)
[2022-01-25] MEDS: Sodium Chloride 0.9% 1,000 ML IV SCH (00:45)
[2022-01-25] MEDS: Acetaminophen/Codeine 30-300mg Tablet PO SCH ×5 (00:45→23:50)
[2022-01-25] MEDS: Levothyroxine Sodium 125 MCG TAB PO SCH (05:50)
[2022-01-25] MEDS: HumaLOG 300 UNITS/3 ML VIAL SC PRN ×3 (05:57→23:30)
[2022-01-25] MEDS: Morphine 2 MG/ML VIAL SLOW IVP PRN (06:01)
[2022-01-25 07:45] LABS: #Eosinphils 0.4 thou/uL (0.0-0.7); #Lymphocytes 1.6 thou/uL (1.20-3.40); #Monocytes 0.5 thou/uL (0.11-0.59); #Neutrophils 5.5 thou/uL (1.40-6.50); %Basophils 0.2 % (0.0-1.0); %Eosinophils 5.3 % (0.0-10.0); %Lymphocytes 20.1 % (21.0-51.0); %Monocytes 6.6 % (0.0-10.0); %Neutrophils 67.8 % (42.0-75.0); Hemoglobin 7.8 g/dL (12.0-16.0); Mean Corpuscular HGB CONC 30.8 g/dL (32.0-36.0); Mean Corpuscular Hemoglobin 25.6 pg (27.0-31.0); Mean Platelet Volume 7.1 fL (7.4-10.4); Platelet Count 251 thou/uL (130-400); RBC Distribution Width 16.3 % (11.5-14.5); Red Blood Cell (RBC) Count 3.04 mill/uL (4.20-5.40); White Blood Cell (WBC) Count 8.1 thou/uL (4.8-10.8)
[2022-01-25 08:11] LABS: Anion Gap 15 mmol/L (10-20); BUN (Urea Nitrogen) 20 mg/dL (9.8-20.1); Calc. Creatinine Clearance 113 mL/min (70-130); Carbon Dioxide 17 mmol/L (23-31); Chloride 110 mmol/L (98-107); Glucose 179 mg/dL (80-115); Magnesium 2.1 mg/dL (1.6-2.6); Phosphorus 2.4 mg/dL (2.3-4.7); Potassium 3.9 mmol/L (3.5-5.1); Sodium 138 mmol/L (136-145)
[2022-01-25] MEDS: Heparin 5,000 UNITS/ML VIAL SC SCH ×3 (10:02→20:36)
[2022-01-25] MEDS: Polyethylene Glycol 3350 17 GM Packet PO SCH (10:12)
[2022-01-25] MEDS ORDERED: Pramipexole Di-HCl 0.125 MG TAB PO SCH (10:30)
[2022-01-25] MEDS: Pramipexole Di-HCl 0.125 MG TAB PO SCH ×2 (17:57→20:36)
[2022-01-25] MEDS: Cyclobenzaprine 10 MG TAB PO PRN (20:35)
[2022-01-25] MEDS: Melatonin 3 MG TAB PO SCH (20:35)
[2022-01-25] MEDS: Atorvastatin Calcium 40 MG TAB PO SCH (20:36)
[2022-01-25] MEDS: Insulin Glargine 30 UNITS/0.3 ML VIAL SC SCH (20:36)
[2022-01-25] MEDS ORDERED: Non-Formulary Item 1 EACH (Omeprazole [Omeprazole] 20 MG Capsule.Dr) PO SCH (21:00)
[2022-01-26] MEDS: Levothyroxine Sodium 125 MCG TAB PO SCH (05:12)
[2022-01-26] MEDS: Acetaminophen/Codeine 30-300mg Tablet PO SCH ×3 (05:13→17:42)
[2022-01-26] MEDS: Cyclobenzaprine 10 MG TAB PO PRN (05:13)
[2022-01-26] MEDS: Heparin 5,000 UNITS/ML VIAL SC SCH ×3 (10:55→21:26)
[2022-01-26] MEDS: Pramipexole Di-HCl 0.125 MG TAB PO SCH ×3 (10:55→21:20)
[2022-01-26] MEDS: Polyethylene Glycol 3350 17 GM Packet PO SCH (10:56)
[2022-01-26] MEDS: HumaLOG 300 UNITS/3 ML VIAL SC PRN (17:43)
[2022-01-26] MEDS: Insulin Glargine 30 UNITS/0.3 ML VIAL SC SCH (21:19)
[2022-01-26] MEDS: Melatonin 3 MG TAB PO SCH (21:20)
[2022-01-26] MEDS: Atorvastatin Calcium 40 MG TAB PO SCH (21:21)
[2022-01-27] MEDS: Acetaminophen/Codeine 30-300mg Tablet PO SCH ×4 (00:50→17:06)
[2022-01-27] MEDS: Levothyroxine Sodium 125 MCG TAB PO SCH (06:35)
[2022-01-27] MEDS: Polyethylene Glycol 3350 17 GM Packet PO SCH (09:18)
[2022-01-27] MEDS: Heparin 5,000 UNITS/ML VIAL SC SCH ×3 (09:18→20:55)
[2022-01-27] MEDS: HumaLOG 300 UNITS/3 ML VIAL SC PRN ×2 (09:18→21:06)
[2022-01-27] MEDS: Pramipexole Di-HCl 0.125 MG TAB PO SCH ×3 (09:19→20:54)
[2022-01-27] MEDS: Gabapentin 100 MG CAP PO SCH ×2 (13:22→20:54)
[2022-01-27] MEDS ORDERED: Acetaminophen/Codeine 30-300mg Tablet PO PRN (19:10)
[2022-01-27] MEDS: Melatonin 3 MG TAB PO SCH (20:54)
[2022-01-27] MEDS: Atorvastatin Calcium 40 MG TAB PO SCH (20:54)
[2022-01-27] MEDS: Insulin Glargine 30 UNITS/0.3 ML VIAL SC SCH (20:55)
[2022-01-27] MEDS: Cyclobenzaprine 10 MG TAB PO PRN (23:03)
[2022-01-28] MEDS: Acetaminophen/Codeine 30-300mg Tablet PO SCH ×4 (00:47→18:00)
[2022-01-28] MEDS: Gabapentin 100 MG CAP PO SCH ×2 (05:17→14:16)
[2022-01-28] MEDS: Levothyroxine Sodium 125 MCG TAB PO SCH (05:18)
[2022-01-28 05:46] LABS: #Basophils 0.1 thou/uL (0.0-0.2); #Eosinphils 0.5 thou/uL (0.0-0.7); #Lymphocytes 2.1 thou/uL (1.20-3.40); #Monocytes 0.7 thou/uL (0.11-0.59); #Neutrophils 6.4 thou/uL (1.40-6.50); %Basophils 0.5 % (0.0-1.0); %Eosinophils 4.9 % (0.0-10.0); %Lymphocytes 21.3 % (21.0-51.0); %Monocytes 7.1 % (0.0-10.0); %Neutrophils 66.2 % (42.0-75.0); Hemoglobin 8.9 g/dL (12.0-16.0); Mean Corpuscular HGB CONC 31.4 g/dL (32.0-36.0); Mean Corpuscular Volume 82.7 fL (78.0-98.0); Mean Platelet Volume 5.7 fL (7.4-10.4); Platelet Count 431 thou/uL (130-400); RBC Distribution Width 15.9 % (11.5-14.5); Red Blood Cell (RBC) Count 3.41 mill/uL (4.20-5.40); White Blood Cell (WBC) Count 9.7 thou/uL (4.8-10.8)
[2022-01-28 06:11] LABS: Anion Gap 12 mmol/L (10-20); BUN (Urea Nitrogen) 11 mg/dL (9.8-20.1); Calc. Creatinine Clearance 133 mL/min (70-130); Calcium 8.7 mg/dL (7.8-10.44); Carbon Dioxide 28 mmol/L (23-31); Chloride 104 mmol/L (98-107); Glucose 138 mg/dL (80-115); Magnesium 1.8 mg/dL (1.6-2.6); Phosphorus 4.4 mg/dL (2.3-4.7); Potassium 3.8 mmol/L (3.5-5.1); Sodium 140 mmol/L (136-145)
[2022-01-28] MEDS ORDERED: Amlodipine 10 MG TAB PO SCH (09:00)
[2022-01-28] MEDS: Polyethylene Glycol 3350 17 GM Packet PO SCH (09:18)
[2022-01-28] MEDS: Heparin 5,000 UNITS/ML VIAL SC SCH ×2 (09:18→14:16)
[2022-01-28] MEDS ORDERED: Pramipexole Di-HCl 0.125 MG TAB PO SCH ×2 (12:00→21:00)
[2022-01-28 16:46] VITALS: BP 151/68; TEMP 98.1
== END 2022-01-28 18:14 | DRG 481 ==
LOC: SURG A 12:20
PROVIDERS: ADMIT Specialist; ATTEND Surgery
PROC: 0QSC04Z Reposition Left Lower Femur with Internal Fixation Device, Open Approach (ICD-10-PCS; principal; 2022-01-23)
DX: S72.402A Unspecified fracture of lower end of left femur, initial encounter for closed fracture (principal); S72.401A Unspecified fracture of lower end of right femur, initial encounter for closed fracture; M97.12XA Periprosthetic fracture around internal prosthetic left knee joint, initial encounter; M97.11XA Periprosthetic fracture around internal prosthetic right knee joint, initial encounter; N17.9 Acute kidney failure, unspecified; Z20.822 Contact with and (suspected) exposure to COVID-19; E78.5 Hyperlipidemia, unspecified; E03.9 Hypothyroidism, unspecified; E11.22 Type 2 diabetes mellitus with diabetic chronic kidney disease; I12.9 Hypertensive chronic kidney disease with stage 1 through stage 4 chronic kidney disease, or unspecified chronic kidney disease; W18.30XA Fall on same level, unspecified, initial encounter; G47.33 Obstructive sleep apnea (adult) (pediatric); N18.9 Chronic kidney disease, unspecified; E11.65 Type 2 diabetes mellitus with hyperglycemia; G93.89 Other specified disorders of brain; Z96.653 Presence of artificial knee joint, bilateral; R33.9 Retention of urine, unspecified; R41.82 Altered mental status, unspecified; T40.605A Adverse effect of unspecified narcotics, initial encounter; Z79.4 Long term (current) use of insulin; Z79.890 Hormone replacement therapy; Z79.84 Long term (current) use of oral hypoglycemic drugs; Z79.899 Other long term (current) drug therapy
CPT/HCPCS: 36415; 36416; 70450; 76000; 80048; 82533; 83735; 84100; 85025; 86850; 86900; 86901; 93005; 93010; 95712; 95819; 95957; C1713; J0690; J1170; J1644; J1815; J1885; J2270; J2370; J2405; J2704; J7050; P9045; S0028; U0003; U0005

== ENCOUNTER 2022-04-14 12:36 | Inpatient (IN) | payer MEDICARE ==
[~2022-04-14 12:36] MED LIST: Heparin 1,000 UNITS/ML VIAL ONE
[2022-04-14 14:01] LABS: #Basophils 0.1 thou/uL (0.0-0.2); #Eosinphils 0.1 thou/uL (0.0-0.7); #Lymphocytes 3.2 thou/uL (1.20-3.40); #Monocytes 0.8 thou/uL (0.11-0.59); #Neutrophils 10.4 thou/uL (1.40-6.50); %Basophils 0.4 % (0.0-1.0); %Eosinophils 0.8 % (0.0-10.0); %Monocytes 5.2 % (0.0-10.0); %Neutrophils 71.6 % (42.0-75.0); Hemoglobin 8.2 g/dL (12.0-16.0); Mean Corpuscular HGB CONC 31.5 g/dL (32.0-36.0); Mean Corpuscular Hemoglobin 26.4 pg (27.0-31.0); Mean Corpuscular Volume 83.8 fL (78.0-98.0); Mean Platelet Volume 5.7 fL (7.4-10.4); Platelet Count 616 thou/uL (130-400); RBC Distribution Width 19.2 % (11.5-14.5); Red Blood Cell (RBC) Count 3.12 mill/uL (4.20-5.40); White Blood Cell (WBC) Count 14.5 thou/uL (4.8-10.8)
[2022-04-14 14:22] LABS: ALT (SGPT) 8 U/L (8-55); AST (SGOT) 8 U/L (5-34); Albumin 2.9 g/dL (3.4-4.8); Alkaline Phosphatase 136 U/L (40-110); Anion Gap 17 mmol/L (10-20); BUN (Urea Nitrogen) 60 mg/dL (9.8-20.1); Bilirubin, Total 0.3 mg/dL (0.2-1.2); Calc. Creatinine Clearance 0 mL/min (70-130); Calcium 8.9 mg/dL (7.8-10.44); Carbon Dioxide 16 mmol/L (23-31); Chloride 104 mmol/L (98-107); Estimated GFR 14; Globulin 5.1 g/dL (2.4-3.5); Glucose 120 mg/dL (80-115); Lipase 18 U/L (8-78); Sodium 130 mmol/L (136-145)
[2022-04-14 14:25] LABS: Bacteria/HPF 4+ HPF (None Seen); Bilirubin Negative (Negative); Blood, Urine 2+ (Negative); Clarity Extra Turbid (Clear); Glucose, Urine (Dipstick) 300 mg/dL (Negative); Ketone, Urine 10 mg/dL (Negative); Leukocyte 500 Leu/uL (Negative); Nitrite Negative (Negative); Protein, Urine (Dipstick) 100 mg/dL (Neg-Trace); Squamous Epithelial None Seen HPF (0-3); Urobilinogen Normal mg/dL (Less than 2); WBC/HPF Greater than 50 HPF (0-3); pH, Urine 5.5 (5.0-9.0)
[2022-04-14 14:27] LABS: Yeast-Budding 1+ HPF (None Seen)
[2022-04-14 14:38] LABS: Potassium 6.9 mmol/L (3.5-5.1)
[2022-04-14] MEDS ORDERED: CALCIUM GLUC 1GM/NS 50ML BAG ONE (15:07)
[2022-04-14] MEDS ORDERED: Insulin Regular 300 UNITS/3 ML VIAL ONE (15:33)
[2022-04-14] MEDS ORDERED: Dextrose 50% Abboject 50 ML SYRINGE ONE (15:33)
[2022-04-14] MEDS ORDERED: cefTRIAXone\\ROCEPHIN 1 GM VIAL ONE (15:33)
[2022-04-14 15:41] LABS: SARS-CoV-2 NAA Rapid Test Not Detected (NotDetected)
[2022-04-14] MEDS ORDERED: Ondansetron PF 4 MG/2 ML Vial IVP PRN (17:52)
[2022-04-14] MEDS ORDERED: Calcium Carbonate 500 MG ChewTAB PO PRN (17:52)
[2022-04-14] MEDS ORDERED: Senokot S 8.6-50 MG TAB PO PRN (17:52)
[2022-04-14] MEDS ORDERED: Bisacodyl 10 MG SUPP PR PRN (17:52)
[2022-04-14] MEDS ORDERED: Ondansetron ODT 4 MG TAB PO PRN (17:52)
[2022-04-14] MEDS ORDERED: Dextrose 5% in Water 1,000 ML IV PRN (17:52)
[2022-04-14] MEDS ORDERED: Acetaminophen 650 MG Suppository PR PRN (17:52)
[2022-04-14] MEDS ORDERED: Bisacodyl 5 MG TAB PO PRN (17:52)
[2022-04-14] MEDS ORDERED: Dextrose 50% Abboject 50 ML SYRINGE SLOW IVP PRN (17:52)
[2022-04-14] MEDS ORDERED: Loperamide HCl 2 MG CAP PO PRN (17:52)
[2022-04-14] MEDS ORDERED: Guaifenesin DM 100-10/5 ML UDCUP PO PRN (17:52)
[2022-04-14] MEDS ORDERED: HumaLOG 300 UNITS/3 ML VIAL SC PRN (17:52)
[2022-04-14] MEDS ORDERED: Sodium Chloride 0.9% 1,000 ML IV SCH (18:00)
[2022-04-14 20:43] LABS: Anion Gap 19 mmol/L (10-20); BUN (Urea Nitrogen) 57 mg/dL (9.8-20.1); Calc. Creatinine Clearance 0 mL/min (70-130); Calcium 8.2 mg/dL (7.8-10.44); Carbon Dioxide 13 mmol/L (23-31); Chloride 111 mmol/L (98-107); Estimated GFR 15; Glucose 189 mg/dL (80-115); Potassium 5.6 mmol/L (3.5-5.1); Sodium 137 mmol/L (136-145)
[2022-04-14] MEDS: Famotidine 20 MG TAB PO SCH (21:20)
[2022-04-14] MEDS: Sodium Chloride 0.9% 1,000 ML IV SCH (21:20)
[2022-04-14] MEDS: Famotidine/PF 20 mg/2ml Vial SLOW IVP SCH (21:21)
[2022-04-14] MEDS: Heparin 5,000 UNITS/ML VIAL SC SCH (21:21)
[2022-04-15 04:46] LABS: Anion Gap 13 mmol/L (10-20); BUN (Urea Nitrogen) 50 mg/dL (9.8-20.1); Calc. Creatinine Clearance 0 mL/min (70-130); Calcium 7.7 mg/dL (7.8-10.44); Carbon Dioxide 16 mmol/L (23-31); Chloride 108 mmol/L (98-107); Estimated GFR 18; Glucose 145 mg/dL (80-115); Potassium 4.6 mmol/L (3.5-5.1); Sodium 132 mmol/L (136-145)
[2022-04-15] MEDS: Sodium Chloride 0.9% 1,000 ML IV SCH ×3 (04:47→21:46)
[2022-04-15 04:48] LABS: Hemoglobin A1c 6.4 % (4.0-6.0)
[2022-04-15 05:09] VITALS: BMI 33.1
[2022-04-15 05:20] LABS: #Basophils 0.1 thou/uL (0.0-0.2); #Eosinphils 0.1 thou/uL (0.0-0.7); #Lymphocytes 2.9 thou/uL (1.20-3.40); #Monocytes 0.8 thou/uL (0.11-0.59); #Neutrophils 8.8 thou/uL (1.40-6.50); %Basophils 0.4 % (0.0-1.0); %Eosinophils 0.7 % (0.0-10.0); %Lymphocytes 22.6 % (21.0-51.0); %Monocytes 6.2 % (0.0-10.0); Mean Corpuscular HGB CONC 31.3 g/dL (32.0-36.0); Mean Corpuscular Hemoglobin 26.4 pg (27.0-31.0); Mean Corpuscular Volume 84.2 fL (78.0-98.0); Mean Platelet Volume 5.9 fL (7.4-10.4); Platelet Count 480 thou/uL (130-400); Red Blood Cell (RBC) Count 2.64 mill/uL (4.20-5.40); White Blood Cell (WBC) Count 12.6 thou/uL (4.8-10.8)
[2022-04-15] MEDS: Heparin 5,000 UNITS/ML VIAL SC SCH ×2 (08:36→21:24)
[2022-04-15] MEDS: Phenazopyridine HCl 100 MG TAB PO SCH ×2 (14:20→21:22)
[2022-04-15] MEDS ORDERED: cefTRIAXone\\ROCEPHIN 1 GM in Sodium Chloride 0.9% 100 ML IVPB SCH (16:00)
[2022-04-15] MEDS ORDERED: Piperacillin/Tazobactam 3.375 GM in Sodium Chloride 0.9% 100 ML IVPB SCH (17:00)
[2022-04-15] MEDS: Piperacillin/Tazobactam 3.375 GM in Sodium Chloride 0.9% 100 ML IVPB SCH (21:07)
[2022-04-15] MEDS: Acetaminophen 325 MG TAB PO PRN (21:22)
[2022-04-15] MEDS: Famotidine/PF 20 mg/2ml Vial SLOW IVP SCH (21:23)
[2022-04-15] MEDS: Famotidine 20 MG TAB PO SCH (21:23)
[2022-04-15 23:04] LABS: #Eosinphils 0.1 thou/uL (0.0-0.7); #Monocytes 0.9 thou/uL (0.11-0.59); #Neutrophils 9.8 thou/uL (1.40-6.50); %Basophils 0.3 % (0.0-1.0); %Eosinophils 0.7 % (0.0-10.0); %Monocytes 6.3 % (0.0-10.0); %Neutrophils 70.8 % (42.0-75.0); Hemoglobin 8.1 g/dL (12.0-16.0); Mean Corpuscular HGB CONC 32.4 g/dL (32.0-36.0); Mean Corpuscular Hemoglobin 27.3 pg (27.0-31.0); Mean Corpuscular Volume 84.3 fL (78.0-98.0); Mean Platelet Volume 5.7 fL (7.4-10.4); Platelet Count 450 thou/uL (130-400); RBC Distribution Width 18.5 % (11.5-14.5); Red Blood Cell (RBC) Count 2.95 mill/uL (4.20-5.40); White Blood Cell (WBC) Count 13.8 thou/uL (4.8-10.8)
[2022-04-15 23:24] LABS: Anion Gap 13 mmol/L (10-20); BUN (Urea Nitrogen) 41 mg/dL (9.8-20.1); Calc. Creatinine Clearance 31 mL/min (70-130); Calcium 7.5 mg/dL (7.8-10.44); Carbon Dioxide 15 mmol/L (23-31); Chloride 109 mmol/L (98-107); Estimated GFR 22; Glucose 208 mg/dL (80-115); Potassium 4.4 mmol/L (3.5-5.1); Sodium 133 mmol/L (136-145)
[2022-04-16] MEDS: Acetaminophen 325 MG TAB PO PRN ×4 (01:56→21:09)
[2022-04-16 04:41] LABS: #Basophils 0.1 thou/uL (0.0-0.2); #Eosinphils 0.1 thou/uL (0.0-0.7); #Lymphocytes 3.1 thou/uL (1.20-3.40); #Monocytes 0.8 thou/uL (0.11-0.59); #Neutrophils 9.1 thou/uL (1.40-6.50); %Basophils 0.4 % (0.0-1.0); %Lymphocytes 23.5 % (21.0-51.0); %Monocytes 5.8 % (0.0-10.0); %Neutrophils 69.3 % (42.0-75.0); Mean Corpuscular HGB CONC 31.1 g/dL (32.0-36.0); Mean Corpuscular Hemoglobin 26.7 pg (27.0-31.0); Mean Platelet Volume 5.7 fL (7.4-10.4); Platelet Count 440 thou/uL (130-400); RBC Distribution Width 18.1 % (11.5-14.5); Red Blood Cell (RBC) Count 2.98 mill/uL (4.20-5.40); White Blood Cell (WBC) Count 13.1 thou/uL (4.8-10.8)
[2022-04-16 04:51] LABS: Anion Gap 11 mmol/L (10-20); BUN (Urea Nitrogen) 40 mg/dL (9.8-20.1); Calc. Creatinine Clearance 30 mL/min (70-130); Calcium 7.6 mg/dL (7.8-10.44); Carbon Dioxide 15 mmol/L (23-31); Chloride 111 mmol/L (98-107); Estimated GFR 21; Glucose 191 mg/dL (80-115); Potassium 4.3 mmol/L (3.5-5.1); Sodium 133 mmol/L (136-145)
[2022-04-16] MEDS: HumaLOG 300 UNITS/3 ML VIAL SC PRN ×3 (05:53→18:12)
[2022-04-16] MEDS: Piperacillin/Tazobactam 3.375 GM in Sodium Chloride 0.9% 100 ML IVPB SCH ×2 (10:30→21:12)
[2022-04-16] MEDS: Phenazopyridine HCl 100 MG TAB PO SCH ×3 (10:30→21:10)
[2022-04-16] MEDS: Heparin 5,000 UNITS/ML VIAL SC SCH ×2 (10:31→21:17)
[2022-04-16] MEDS: Sodium Chloride 0.9% 1,000 ML IV SCH ×2 (12:24→21:11)
[2022-04-16] MEDS ORDERED: EPOETIN ALFA-EPBX (ESRD) 10,000 UNIT/ML VIAL SC SCH (12:45)
[2022-04-16] MEDS ORDERED: Epoetin (ESRD) 10,000 UNITS/ML VIAL SC SCH (16:00)
[2022-04-16] MEDS: Ferrous Sulfate 325 MG TAB PO SCH (16:31)
[2022-04-16] MEDS: Famotidine 20 MG TAB PO SCH (21:11)
[2022-04-16] MEDS: Famotidine/PF 20 mg/2ml Vial SLOW IVP SCH (21:12)
[2022-04-16] MEDS ORDERED: Pramipexole Di-HCl 0.125 MG TAB PO SCH (21:30)
[2022-04-16] MEDS ORDERED: Niacin 500 MG TAB PO SCH (22:00)
[2022-04-16] MEDS: Atorvastatin Calcium 40 MG TAB PO SCH (22:14)
[2022-04-16] MEDS: Pramipexole Di-HCl 0.125 MG TAB PO SCH (22:15)
[2022-04-17 04:57] LABS: Anion Gap 13 mmol/L (10-20); BUN (Urea Nitrogen) 38 mg/dL (9.8-20.1); Calc. Creatinine Clearance 32 mL/min (70-130); Calcium 7.7 mg/dL (7.8-10.44); Carbon Dioxide 15 mmol/L (23-31); Chloride 113 mmol/L (98-107); Estimated GFR 22; Glucose 163 mg/dL (80-115); Potassium 3.8 mmol/L (3.5-5.1); Sodium 137 mmol/L (136-145)
[2022-04-17 05:09] LABS: #Basophils 0.1 thou/uL (0.0-0.2); #Eosinphils 0.3 thou/uL (0.0-0.7); #Lymphocytes 3.6 thou/uL (1.20-3.40); #Monocytes 0.7 thou/uL (0.11-0.59); #Neutrophils 11.1 thou/uL (1.40-6.50); %Basophils 0.5 % (0.0-1.0); %Eosinophils 1.9 % (0.0-10.0); %Lymphocytes 22.9 % (21.0-51.0); %Monocytes 4.2 % (0.0-10.0); %Neutrophils 70.6 % (42.0-75.0); Hemoglobin 8.6 g/dL (12.0-16.0); Mean Corpuscular HGB CONC 31.5 g/dL (32.0-36.0); Mean Corpuscular Hemoglobin 27.2 pg (27.0-31.0); Mean Corpuscular Volume 86.4 fL (78.0-98.0); Mean Platelet Volume 5.9 fL (7.4-10.4); Platelet Count 500 thou/uL (130-400); RBC Distribution Width 18.7 % (11.5-14.5); Red Blood Cell (RBC) Count 3.16 mill/uL (4.20-5.40); White Blood Cell (WBC) Count 15.7 thou/uL (4.8-10.8)
[2022-04-17] MEDS: Levothyroxine Sodium 125 MCG TAB PO SCH (05:46)
[2022-04-17] MEDS: HumaLOG 300 UNITS/3 ML VIAL SC PRN ×3 (05:50→18:02)
[2022-04-17] MEDS: Sodium Chloride 0.9% 1,000 ML IV SCH ×2 (05:55→07:47)
[2022-04-17] MEDS: Ferrous Sulfate 325 MG TAB PO SCH ×2 (08:47→16:20)
[2022-04-17] MEDS: Phenazopyridine HCl 100 MG TAB PO SCH ×3 (08:47→20:25)
[2022-04-17] MEDS: Aspirin 325 mg Enteric Coated Tablet PO SCH (08:47)
[2022-04-17] MEDS: Amlodipine 10 MG TAB PO SCH (08:47)
[2022-04-17] MEDS: Polyethylene Glycol 3350 17 GM Packet PO SCH (08:48)
[2022-04-17] MEDS: Heparin 5,000 UNITS/ML VIAL SC SCH ×2 (08:48→20:28)
[2022-04-17] MEDS: Piperacillin/Tazobactam 3.375 GM in Sodium Chloride 0.9% 100 ML IVPB SCH (08:48)
[2022-04-17] MEDS: Acetaminophen 325 MG TAB PO PRN ×2 (10:33→20:25)
[2022-04-17] MEDS: Pramipexole Di-HCl 0.125 MG TAB PO SCH ×2 (12:10→20:27)
[2022-04-17] MEDS ORDERED: Merrem (PEDI) 500 MG in Syringe 0 ML IVPB SCH (16:00)
[2022-04-17] MEDS: Sodium Bicarbonate Tab 325 MG TAB PO SCH ×2 (16:22→20:26)
[2022-04-17] MEDS ORDERED: Piperacillin/Tazobactam 3.375 GM in Sodium Chloride 0.9% 100 ML IVPB SCH (17:00)
[2022-04-17] MEDS ORDERED: Meropenem 1 GM in Sodium Chloride 0.9% 100 ML IVPB SCH (17:30)
[2022-04-17] MEDS: Loperamide HCl 2 MG CAP PO PRN (18:04)
[2022-04-17] MEDS: Famotidine 20 MG TAB PO SCH (20:26)
[2022-04-17] MEDS: Atorvastatin Calcium 40 MG TAB PO SCH (20:27)
[2022-04-17] MEDS: Niacin 500 MG TAB PO SCH (20:27)
[2022-04-17] MEDS: Famotidine/PF 20 mg/2ml Vial SLOW IVP SCH (20:27)
[2022-04-18] MEDS: Meropenem 500 MG in Sodium Chloride 0.9% 100 ML IVPB SCH ×2 (02:17→15:26)
[2022-04-18] MEDS: Sodium Chloride 0.9% 1,000 ML IV SCH ×2 (02:23→21:55)
[2022-04-18 04:59] LABS: #Basophils 0.1 thou/uL (0.0-0.2); #Eosinphils 0.5 thou/uL (0.0-0.7); #Lymphocytes 3.7 thou/uL (1.20-3.40); #Monocytes 0.8 thou/uL (0.11-0.59); #Neutrophils 12.7 thou/uL (1.40-6.50); %Basophils 0.4 % (0.0-1.0); %Eosinophils 2.7 % (0.0-10.0); %Lymphocytes 20.7 % (21.0-51.0); %Monocytes 4.7 % (0.0-10.0); %Neutrophils 71.4 % (42.0-75.0); Hemoglobin 9.5 g/dL (12.0-16.0); Mean Corpuscular HGB CONC 31.5 g/dL (32.0-36.0); Mean Corpuscular Hemoglobin 27.5 pg (27.0-31.0); Mean Corpuscular Volume 87.4 fL (78.0-98.0); Mean Platelet Volume 5.8 fL (7.4-10.4); Platelet Count 543 thou/uL (130-400); Red Blood Cell (RBC) Count 3.45 mill/uL (4.20-5.40); White Blood Cell (WBC) Count 17.7 thou/uL (4.8-10.8)
[2022-04-18 05:03] LABS: Anion Gap 13 mmol/L (10-20); BUN (Urea Nitrogen) 32 mg/dL (9.8-20.1); Calc. Creatinine Clearance 31 mL/min (70-130); Calcium 7.9 mg/dL (7.8-10.44); Carbon Dioxide 15 mmol/L (23-31); Chloride 112 mmol/L (98-107); Estimated GFR 22; Glucose 139 mg/dL (80-115); Potassium 3.6 mmol/L (3.5-5.1); Sodium 136 mmol/L (136-145)
[2022-04-18] MEDS: Levothyroxine Sodium 125 MCG TAB PO SCH (05:27)
[2022-04-18] MEDS: Ferrous Sulfate 325 MG TAB PO SCH ×2 (09:09→17:27)
[2022-04-18] MEDS: Amlodipine 10 MG TAB PO SCH (09:09)
[2022-04-18] MEDS: Aspirin 325 mg Enteric Coated Tablet PO SCH (09:10)
[2022-04-18] MEDS: Phenazopyridine HCl 100 MG TAB PO SCH ×3 (09:10→21:54)
[2022-04-18] MEDS: Heparin 5,000 UNITS/ML VIAL SC SCH ×2 (09:10→21:53)
[2022-04-18] MEDS: Sodium Bicarbonate Tab 325 MG TAB PO SCH ×3 (09:11→21:54)
[2022-04-18] MEDS: Polyethylene Glycol 3350 17 GM Packet PO SCH (09:11)
[2022-04-18] MEDS: Pramipexole Di-HCl 0.125 MG TAB PO SCH (15:25)
[2022-04-18] MEDS: Famotidine/PF 20 mg/2ml Vial SLOW IVP SCH (21:03)
[2022-04-18] MEDS: Famotidine 20 MG TAB PO SCH (21:54)
[2022-04-18] MEDS: Niacin 500 MG TAB PO SCH (21:54)
[2022-04-18] MEDS: Atorvastatin Calcium 40 MG TAB PO SCH (21:54)
[2022-04-19] MEDS: Acetaminophen 325 MG TAB PO PRN ×2 (00:50→21:27)
[2022-04-19] MEDS: Meropenem 500 MG in Sodium Chloride 0.9% 100 ML IVPB SCH ×2 (01:26→15:39)
[2022-04-19 04:53] LABS: #Basophils 0.1 thou/uL (0.0-0.2); #Eosinphils 0.3 thou/uL (0.0-0.7); #Monocytes 1.1 thou/uL (0.11-0.59); #Neutrophils 12.8 thou/uL (1.40-6.50); %Basophils 0.4 % (0.0-1.0); %Eosinophils 1.9 % (0.0-10.0); %Lymphocytes 21.9 % (21.0-51.0); %Monocytes 6.1 % (0.0-10.0); %Neutrophils 69.6 % (42.0-75.0); Mean Corpuscular HGB CONC 31.5 g/dL (32.0-36.0); Mean Corpuscular Hemoglobin 27.4 pg (27.0-31.0); Mean Corpuscular Volume 86.8 fL (78.0-98.0); Mean Platelet Volume 5.8 fL (7.4-10.4); Platelet Count 524 thou/uL (130-400); Red Blood Cell (RBC) Count 2.91 mill/uL (4.20-5.40); White Blood Cell (WBC) Count 18.3 thou/uL (4.8-10.8)
[2022-04-19 05:03] LABS: Anion Gap 15 mmol/L (10-20); BUN (Urea Nitrogen) 28 mg/dL (9.8-20.1); Calc. Creatinine Clearance 32 mL/min (70-130); Calcium 7.7 mg/dL (7.8-10.44); Carbon Dioxide 14 mmol/L (23-31); Chloride 109 mmol/L (98-107); Estimated GFR 22; Glucose 147 mg/dL (80-115); Potassium 3.5 mmol/L (3.5-5.1); Sodium 134 mmol/L (136-145)
[2022-04-19] MEDS: Loperamide HCl 2 MG CAP PO PRN (05:20)
[2022-04-19] MEDS: Levothyroxine Sodium 125 MCG TAB PO SCH (05:20)
[2022-04-19] MEDS: Ferrous Sulfate 325 MG TAB PO SCH ×2 (10:17→18:33)
[2022-04-19] MEDS: Amlodipine 10 MG TAB PO SCH (10:17)
[2022-04-19] MEDS: Aspirin 325 mg Enteric Coated Tablet PO SCH (10:17)
[2022-04-19] MEDS: Heparin 5,000 UNITS/ML VIAL SC SCH ×2 (10:17→21:25)
[2022-04-19] MEDS: Sodium Bicarbonate Tab 325 MG TAB PO SCH ×3 (10:18→21:27)
[2022-04-19] MEDS: Polyethylene Glycol 3350 17 GM Packet PO SCH (10:18)
[2022-04-19] MEDS: Pramipexole Di-HCl 0.125 MG TAB PO SCH ×2 (14:51→21:26)
[2022-04-19] MEDS: Atorvastatin Calcium 40 MG TAB PO SCH (21:24)
[2022-04-19] MEDS: Famotidine 20 MG TAB PO SCH (21:25)
[2022-04-19] MEDS: Famotidine/PF 20 mg/2ml Vial SLOW IVP SCH (21:25)
[2022-04-19] MEDS: Niacin 500 MG TAB PO SCH (21:25)
[2022-04-20] MEDS: Meropenem 500 MG in Sodium Chloride 0.9% 100 ML IVPB SCH ×2 (04:07→15:48)
[2022-04-20 04:31] LABS: #Basophils 0.1 thou/uL (0.0-0.2); #Eosinphils 0.4 thou/uL (0.0-0.7); #Neutrophils 10.9 thou/uL (1.40-6.50); %Basophils 0.4 % (0.0-1.0); %Eosinophils 2.2 % (0.0-10.0); %Lymphocytes 24.2 % (21.0-51.0); %Monocytes 6.3 % (0.0-10.0); %Neutrophils 66.8 % (42.0-75.0); Hemoglobin 8.9 g/dL (12.0-16.0); Mean Corpuscular HGB CONC 29.8 g/dL (32.0-36.0); Mean Corpuscular Hemoglobin 26.7 pg (27.0-31.0); Mean Corpuscular Volume 89.6 fL (78.0-98.0); Mean Platelet Volume 5.8 fL (7.4-10.4); Platelet Count 503 thou/uL (130-400); RBC Distribution Width 19.1 % (11.5-14.5); Red Blood Cell (RBC) Count 3.32 mill/uL (4.20-5.40); White Blood Cell (WBC) Count 16.3 thou/uL (4.8-10.8)
[2022-04-20 04:53] LABS: Anion Gap 15 mmol/L (10-20); BUN (Urea Nitrogen) 26 mg/dL (9.8-20.1); Calc. Creatinine Clearance 29 mL/min (70-130); Carbon Dioxide 14 mmol/L (23-31); Chloride 111 mmol/L (98-107); Estimated GFR 19; Glucose 146 mg/dL (80-115); Potassium 3.7 mmol/L (3.5-5.1); Sodium 136 mmol/L (136-145)
[2022-04-20] MEDS: Levothyroxine Sodium 125 MCG TAB PO SCH (05:41)
[2022-04-20] MEDS: Aspirin 325 mg Enteric Coated Tablet PO SCH (09:42)
[2022-04-20] MEDS: Heparin 5,000 UNITS/ML VIAL SC SCH ×2 (09:42→20:40)
[2022-04-20] MEDS: Amlodipine 10 MG TAB PO SCH (09:42)
[2022-04-20] MEDS: Ferrous Sulfate 325 MG TAB PO SCH ×2 (09:43→17:30)
[2022-04-20] MEDS: Polyethylene Glycol 3350 17 GM Packet PO SCH (09:43)
[2022-04-20] MEDS: Sodium Bicarbonate Tab 325 MG TAB PO SCH ×3 (09:43→20:41)
[2022-04-20] MEDS: Pramipexole Di-HCl 0.125 MG TAB PO SCH ×2 (14:53→20:41)
[2022-04-20] MEDS: HumaLOG 300 UNITS/3 ML VIAL SC PRN (17:29)
[2022-04-20] MEDS: Atorvastatin Calcium 40 MG TAB PO SCH (20:40)
[2022-04-20] MEDS: Niacin 500 MG TAB PO SCH (20:40)
[2022-04-20] MEDS: Famotidine 20 MG TAB PO SCH (20:40)
[2022-04-20] MEDS: Famotidine/PF 20 mg/2ml Vial SLOW IVP SCH (20:41)
[2022-04-21] MEDS: Acetaminophen 325 MG TAB PO PRN (03:05)
[2022-04-21 04:55] LABS: #Basophils 0.1 thou/uL (0.0-0.2); #Eosinphils 0.3 thou/uL (0.0-0.7); #Lymphocytes 4.2 thou/uL (1.20-3.40); #Monocytes 1.1 thou/uL (0.11-0.59); #Neutrophils 9.7 thou/uL (1.40-6.50); %Basophils 0.3 % (0.0-1.0); %Eosinophils 2.2 % (0.0-10.0); %Lymphocytes 27.6 % (21.0-51.0); %Monocytes 7.1 % (0.0-10.0); %Neutrophils 62.8 % (42.0-75.0); Hemoglobin 7.4 g/dL (12.0-16.0); Mean Corpuscular HGB CONC 32.2 g/dL (32.0-36.0); Mean Corpuscular Hemoglobin 27.5 pg (27.0-31.0); Mean Corpuscular Volume 85.4 fL (78.0-98.0); Mean Platelet Volume 5.8 fL (7.4-10.4); Platelet Count 507 thou/uL (130-400); RBC Distribution Width 19.3 % (11.5-14.5); Red Blood Cell (RBC) Count 2.68 mill/uL (4.20-5.40); White Blood Cell (WBC) Count 15.4 thou/uL (4.8-10.8)
[2022-04-21 05:12] LABS: Anion Gap 14 mmol/L (10-20); BUN (Urea Nitrogen) 25 mg/dL (9.8-20.1); Calc. Creatinine Clearance 33 mL/min (70-130); Calcium 7.8 mg/dL (7.8-10.44); Carbon Dioxide 18 mmol/L (23-31); Chloride 106 mmol/L (98-107); Estimated GFR 22; Glucose 123 mg/dL (80-115); Potassium 3.5 mmol/L (3.5-5.1); Sodium 134 mmol/L (136-145)
[2022-04-21] MEDS: Levothyroxine Sodium 125 MCG TAB PO SCH (06:20)
[2022-04-21] MEDS: Heparin 5,000 UNITS/ML VIAL SC SCH (09:26)
[2022-04-21] MEDS: Amlodipine 10 MG TAB PO SCH (09:26)
[2022-04-21] MEDS: Ferrous Sulfate 325 MG TAB PO SCH (09:27)
[2022-04-21] MEDS: Sodium Bicarbonate Tab 325 MG TAB PO SCH (09:27)
[2022-04-21] MEDS: Aspirin 325 mg Enteric Coated Tablet PO SCH (09:27)
[2022-04-21] MEDS: Polyethylene Glycol 3350 17 GM Packet PO SCH (09:42)
[2022-04-21] MEDS: Pramipexole Di-HCl 0.125 MG TAB PO SCH (12:14)
[2022-04-21 12:33] VITALS: BP 134/60; TEMP 97.6
== END 2022-04-21 13:49 | disposition home health service (06) | DRG 872 ==
LOC: ERS 12:36 → 2NO 17:35
PROVIDERS: ADMIT Internal Medicine; ATTEND Internal Medicine
PROC: 3E03329 Introduction of Other Anti-infective into Peripheral Vein, Percutaneous Approach (ICD-10-PCS; principal; 2022-04-14)
PROC: 30233N1 Transfusion of Nonautologous Red Blood Cells into Peripheral Vein, Percutaneous Approach (ICD-10-PCS; 2022-04-15)
PROC: 02HV33Z Insertion of Infusion Device into Superior Vena Cava, Percutaneous Approach (ICD-10-PCS; 2022-04-19)
PROC: B5181ZA Fluoroscopy of Superior Vena Cava using Low Osmolar Contrast, Guidance (ICD-10-PCS; 2022-04-19)
PROC: B548ZZA Ultrasonography of Superior Vena Cava, Guidance (ICD-10-PCS; 2022-04-19)
DX: A41.51 Sepsis due to Escherichia coli [E. coli] (principal); A41.81 Sepsis due to Enterococcus; Z20.822 Contact with and (suspected) exposure to COVID-19; N30.00 Acute cystitis without hematuria; E87.1 Hypo-osmolality and hyponatremia; E87.2 Acidosis; Z16.23 Resistance to quinolones and fluoroquinolones; N12 Tubulo-interstitial nephritis, not specified as acute or chronic; N17.9 Acute kidney failure, unspecified; N18.30 Chronic kidney disease, stage 3 unspecified; E87.5 Hyperkalemia; D63.1 Anemia in chronic kidney disease; E11.22 Type 2 diabetes mellitus with diabetic chronic kidney disease; E78.2 Mixed hyperlipidemia; G25.81 Restless legs syndrome; E03.9 Hypothyroidism, unspecified; E86.0 Dehydration; I10 Essential (primary) hypertension; Z96.653 Presence of artificial knee joint, bilateral; E73.9 Lactose intolerance, unspecified; I69.344 Monoplegia of lower limb following cerebral infarction affecting left non-dominant side; Z79.84 Long term (current) use of oral hypoglycemic drugs; Z98.890 Other specified postprocedural states; Z88.8 Allergy status to other drugs, medicaments and biological substances; Z79.899 Other long term (current) drug therapy; Z79.4 Long term (current) use of insulin; Z79.890 Hormone replacement therapy; Z79.82 Long term (current) use of aspirin; S72.402D Unspecified fracture of lower end of left femur, subsequent encounter for closed fracture with routine healing; S72.401D Unspecified fracture of lower end of right femur, subsequent encounter for closed fracture with routine healing; M97.02XD Periprosthetic fracture around internal prosthetic left hip joint, subsequent encounter; M97.01XD Periprosthetic fracture around internal prosthetic right hip joint, subsequent encounter; W18.30XD Fall on same level, unspecified, subsequent encounter
CPT/HCPCS: 36415; 36416; 36430; 36569; 76770; 80048; 80053; 81003; 81015; 82274; 83036; 83605; 83690; 83880; 84443; 84484; 85025; 86850; 86900; 86901; 87040; 87077; 87086; 87186; 93005; 96361; 96365; 96375; 97139; C1751; J0610; J0696; J1335; J1644; J1815; J2185; J2543; J3490; J7050; J7999; P9016; Q4081; U0002

== ENCOUNTER 2022-08-02 09:05 | Outpatient (CLI) | payer MEDICARE | END 2022-08-02 09:06 | disposition home or self-care (01) | LOC: BICCT 09:05 | PROVIDERS: ATTEND Urology | DX: N39.0 Urinary tract infection, site not specified (principal); K59.00 Constipation, unspecified; R81 Glycosuria; R33.9 Retention of urine, unspecified; N28.9 Disorder of kidney and ureter, unspecified; R59.0 Localized enlarged lymph nodes; N83.201 Unspecified ovarian cyst, right side; R16.1 Splenomegaly, not elsewhere classified; K80.20 Calculus of gallbladder without cholecystitis without obstruction; N32.89 Other specified disorders of bladder | CPT/HCPCS: 74176 ==

== ENCOUNTER 2022-11-17 21:04 | Observation (INO) | payer MEDICARE, OTHER ==
[2022-11-17 21:46] LABS: #Basophils 0.1 thou/uL (0.0-0.2); #Eosinphils 0.4 thou/uL (0.0-0.7); #Monocytes 0.9 thou/uL (0.11-0.59); #Neutrophils 6.8 thou/uL (1.40-6.50); %Basophils 0.6 % (0.0-1.0); %Eosinophils 3.4 % (0.0-10.0); %Lymphocytes 26.8 % (21.0-51.0); %Monocytes 7.8 % (0.0-10.0); %Neutrophils 61.4 % (42.0-75.0); Hemoglobin 9.7 g/dL (12.0-16.0); Mean Corpuscular HGB CONC 32.3 g/dL (32.0-36.0); Mean Corpuscular Hemoglobin 28.8 pg (27.0-31.0); Mean Corpuscular Volume 88.9 fl (78.0-98.0); Mean Platelet Volume 6.8 fL (7.4-10.4); Platelet Count 341 10x3/uL (130-400); RBC Distribution Width 16.8 % (11.5-14.5); Red Blood Cell (RBC) Count 3.39 mill/uL (4.20-5.40); White Blood Cell (WBC) Count 11.1 10x3/uL (4.8-10.8)
[2022-11-17 22:08] LABS: ALT (SGPT) 10 U/L (8-55); AST (SGOT) 9 U/L (5-34); Albumin 3.9 g/dL (3.4-4.8); Alkaline Phosphatase 89 U/L (40-110); Anion Gap 16 mmol/L (10-20); BUN (Urea Nitrogen) 56 mg/dL (9.8-20.1); Bilirubin, Total 0.3 mg/dL (0.2-1.2); Calc. Creatinine Clearance 0 mL/min (70-130); Calcium 9.1 mg/dL (7.8-10.44); Carbon Dioxide 21 mmol/L (23-31); Chloride 103 mmol/L (98-107); Estimated GFR 27; Globulin 4.1 g/dL (2.4-3.5); Glucose 242 mg/dL (80-115); Potassium 5.6 mmol/L (3.5-5.1); Sodium 134 mmol/L (136-145)
[2022-11-17] MEDS ORDERED: LOKELMA 10 GM PACKET PO SCH (22:45)
[2022-11-17] MEDS ORDERED: Acetaminophen 650 MG Suppository PR PRN (23:43)
[2022-11-17] MEDS ORDERED: Ondansetron PF 4 MG/2 ML Vial IVP PRN (23:43)
[2022-11-17] MEDS ORDERED: Ondansetron ODT 4 MG TAB PO PRN (23:43)
[2022-11-17] MEDS ORDERED: Dextrose 5% in Water 1,000 ML IV PRN (23:48)
[2022-11-17] MEDS ORDERED: HumaLOG 300 UNITS/3 ML VIAL SC PRN (23:48)
[2022-11-17] MEDS ORDERED: Dextrose 50% Abboject 50 ML SYRINGE SLOW IVP PRN (23:48)
[2022-11-18] MEDS: cefTRIAXone\\ROCEPHIN 1 GM in Sodium Chloride 0.9% 100 ML IVPB SCH (01:07)
[2022-11-18 01:36] VITALS: BMI 37.6
[2022-11-18 02:38] LABS: SARS-CoV-2 NAA Rapid Test Not Detected (NotDetected)
[2022-11-18 05:13] LABS: #Basophils 0.1 thou/uL (0.0-0.2); #Eosinphils 0.3 thou/uL (0.0-0.7); #Lymphocytes 2.8 thou/uL (1.20-3.40); #Monocytes 0.8 thou/uL (0.11-0.59); #Neutrophils 5.5 thou/uL (1.40-6.50); %Basophils 0.7 % (0.0-1.0); %Eosinophils 3.6 % (0.0-10.0); %Lymphocytes 29.9 % (21.0-51.0); %Monocytes 8.3 % (0.0-10.0); %Neutrophils 57.5 % (42.0-75.0); Hemoglobin 8.7 g/dL (12.0-16.0); Mean Corpuscular HGB CONC 32.9 g/dL (32.0-36.0); Mean Corpuscular Volume 88.4 fl (78.0-98.0); Mean Platelet Volume 6.9 fL (7.4-10.4); Platelet Count 285 10x3/uL (130-400); RBC Distribution Width 16.7 % (11.5-14.5); Red Blood Cell (RBC) Count 3.01 mill/uL (4.20-5.40); White Blood Cell (WBC) Count 9.5 10x3/uL (4.8-10.8)
[2022-11-18 05:16] LABS: Anion Gap 14 mmol/L (10-20); BUN (Urea Nitrogen) 60 mg/dL (9.8-20.1); Calc. Creatinine Clearance 43 mL/min (70-130); Calcium 8.6 mg/dL (7.8-10.44); Carbon Dioxide 19 mmol/L (23-31); Chloride 106 mmol/L (98-107); Estimated GFR 28; Glucose 332 mg/dL (80-115); Potassium 5.1 mmol/L (3.5-5.1); Sodium 134 mmol/L (136-145)
[2022-11-18] MEDS: HumaLOG 300 UNITS/3 ML VIAL SC PRN (06:18)
[2022-11-18] MEDS: Acetaminophen 325 MG TAB PO PRN ×3 (09:35→21:50)
[2022-11-18] MEDS ORDERED: Amlodipine 5 MG TAB PO PRN (11:16)
[2022-11-18] MEDS ORDERED: Carvedilol 3.125 MG TAB PO PRN (11:16)
[2022-11-18] MEDS ORDERED: HALOBETASOL PROPIONATE 0.05% TOP PRN (11:16)
[2022-11-18] MEDS: Sodium Bicarbonate Tab 325 MG TAB PO SCH (16:44)
[2022-11-18] MEDS ORDERED: Pramipexole Di-HCl 0.25 MG TAB PO SCH ×2 (21:00)
[2022-11-18] MEDS ORDERED: Insulin Glargine 30 UNITS/0.3 ML VIAL SC SCH (21:00)
[2022-11-18] MEDS ORDERED: Non-Formulary Item 1 EACH (Insulin Glargine,Hum.Rec.Anlog [Toujeo Solostar] 300 UNIT/ML I SQ SCH (21:00)
[2022-11-18] MEDS ORDERED: LOKELMA 10 GM PACKET PO SCH (21:00)
[2022-11-18] MEDS ORDERED: Atorvastatin Calcium 40 MG TAB PO SCH (21:00)
[2022-11-18] MEDS: LOKELMA 10 GM PACKET PO SCH (23:00)
[2022-11-18] MEDS ORDERED: Fioricet 325/50/40 mg Tablet PO PRN (23:46)
[2022-11-19] MEDS: cefTRIAXone\\ROCEPHIN 1 GM in Sodium Chloride 0.9% 100 ML IVPB SCH (01:06)
[2022-11-19] MEDS ORDERED: Acetaminophen/Codeine 30-300mg Tablet PO PRN (03:05)
[2022-11-19] MEDS: Sodium Bicarbonate Tab 325 MG TAB PO SCH (04:35)
[2022-11-19 05:44] LABS: Anion Gap 14 mmol/L (10-20); BUN (Urea Nitrogen) 51 mg/dL (9.8-20.1); Calc. Creatinine Clearance 50 mL/min (70-130); Calcium 8.8 mg/dL (7.8-10.44); Carbon Dioxide 21 mmol/L (23-31); Chloride 105 mmol/L (98-107); Estimated GFR 34; Glucose 238 mg/dL (80-115); Potassium 4.1 mmol/L (3.5-5.1); Sodium 136 mmol/L (136-145)
[2022-11-19] MEDS ORDERED: Levothyroxine Sodium 100 MCG TAB PO SCH (06:00)
[2022-11-19] MEDS: HumaLOG 300 UNITS/3 ML VIAL SC PRN ×2 (06:23→13:22)
[2022-11-19 08:37] VITALS: TEMP 97.5
[2022-11-19] MEDS ORDERED: Non-Formulary Item 1 EACH (Cholecalciferol (Vitamin D3) [Vitamin D3] 50 MCG Capsule) PO SCH (09:00)
[2022-11-19] MEDS ORDERED: Aspirin 81 mg Enteric Coated Tablet PO SCH (09:00)
[2022-11-19] MEDS ORDERED: Cholecalciferol 1,000 UNITS (25 MCG) TAB PO SCH (09:00)
[2022-11-19] MEDS ORDERED: Cyanocobalamin (Vitamin B-12) 1,000 MCG TAB PO SCH (09:00)
[2022-11-19] MEDS ORDERED: Non-Formulary Item 1 EACH (Levothyroxine Sodium [Levothyroxine] 200 MCG Capsule) PO SCH (09:00)
[2022-11-19] MEDS ORDERED: Ferrous Sulfate 325 MG TAB PO SCH (09:00)
[2022-11-19] MEDS ORDERED: Pramipexole Di-HCl 0.25 MG TAB PO SCH (09:00)
[2022-11-19] MEDS: LOKELMA 10 GM PACKET PO SCH (09:06)
[2022-11-19 11:48] VITALS: BP 135/63
[2022-11-25] MEDS ORDERED: Non-Formulary Item 1 EACH (Semaglutide [Ozempic] 0.25 MG/0.2 ML Pen.Injctr) SQ SCH (09:00)
== END 2022-11-19 15:45 | disposition home or self-care (01) ==
LOC: ERS 21:04 → 2SW 23:01
PROVIDERS: ADMIT Student in an Organized Health Care Education/Training Program; ATTEND Family Medicine
DX: E87.5 Hyperkalemia (principal); R22.43 Localized swelling, mass and lump, lower limb, bilateral; I13.0 Hypertensive heart and chronic kidney disease with heart failure and stage 1 through stage 4 chronic kidney disease, or unspecified chronic kidney disease; E11.22 Type 2 diabetes mellitus with diabetic chronic kidney disease; Z20.822 Contact with and (suspected) exposure to COVID-19; I50.30 Unspecified diastolic (congestive) heart failure; N18.4 Chronic kidney disease, stage 4 (severe); D63.1 Anemia in chronic kidney disease; E03.9 Hypothyroidism, unspecified; J32.9 Chronic sinusitis, unspecified; R93.49 Abnormal radiologic findings on diagnostic imaging of other urinary organs; Z95.810 Presence of automatic (implantable) cardiac defibrillator; Z86.73 Personal history of transient ischemic attack (TIA), and cerebral infarction without residual deficits; Z91.011 Allergy to milk products; Z79.4 Long term (current) use of insulin; Z79.82 Long term (current) use of aspirin; Z79.890 Hormone replacement therapy; Z79.899 Other long term (current) drug therapy
CPT/HCPCS: 71045; 80048 ×3; 80053; 83735; 83880; 85025 ×2; 93005; 93306; 96365; 96366; 96372 ×2; 99285; G0378 ×3; U0002; 36415; J0696; J1650; J1815; J3490

== ENCOUNTER 2024-07-31 11:38 | Outpatient (CLI) | payer MEDICARE | END 2024-07-31 11:39 | disposition home or self-care (01) | LOC: SCSMRI 11:38 | PROVIDERS: ATTEND Family Medicine | DX: I63.9 Cerebral infarction, unspecified (principal); I67.89 Other cerebrovascular disease | CPT/HCPCS: 70551 ==

== ENCOUNTER 2024-08-12 19:58 | Observation (INO) | payer MEDICARE ==
[2024-08-12 20:34] LABS: #Basophils 0.08 10x3/uL (0.0-0.2); %Basophils 0.7 % (0.0-1.0); %Eosinophils 4.1 % (0.0-10.0); %Neutrophils 70.8 % (42.0-75.0); Hematocrit 31.4 % (36.0-47.0); Hemoglobin 10.2 g/dL (12.0-16.0); Mean Corpuscular HGB CONC 32.5 g/dL (32.0-36.0); Mean Corpuscular Hemoglobin 28.6 pg (27.0-31.0); Mean Platelet Volume 9.1 fL (7.4-10.4); Platelet Count 319 10x3/uL (130-400); RBC Distribution Width 14.2 % (11.5-14.5); Red Blood Cell (RBC) Count 3.57 mill/uL (4.20-5.40)
[2024-08-12 20:48] LABS: Prothrombin Time 12.9 sec (12.0-14.7)
[2024-08-12 20:49] LABS: PTT 26.2 sec (22.9-36.1)
[2024-08-12 21:17] LABS: ALT (SGPT) 8 U/L (8-55); AST (SGOT) 16 U/L (5-34); Albumin 3.1 g/dL (3.4-4.8); Alkaline Phosphatase 95 U/L (40-110); Anion Gap 15 mmol/L (10-20); BUN (Urea Nitrogen) 45 mg/dL (9.8-20.1); Bilirubin, Total 0.4 mg/dL (0.2-1.2); Calc. Creatinine Clearance 0 mL/min (70-130); Calcium 8.9 mg/dL (7.8-10.44); Carbon Dioxide 25 mmol/L (23-31); Chloride 101 mmol/L (98-107); Estimated GFR 18; Globulin 4.2 g/dL (2.4-3.5); Glucose 130 mg/dL (80-115); Potassium 4.4 mmol/L (3.5-5.1); Protein, Total 7.3 g/dL (5.8-8.1); Sodium 137 mmol/L (136-145)
[2024-08-12 21:47] LABS: Troponin I Less than 0.010 ng/mL (< 0.028)
[2024-08-12] MEDS ORDERED: Ondansetron PF 4 MG/2 ML Vial IVP PRN (21:53)
[2024-08-12] MEDS ORDERED: Labetalol HCl 100 MG/20 ML VIAL SLOW IVP PRN (21:53)
[2024-08-12] MEDS ORDERED: hydrALAZINE 20 MG/ML VIAL SLOW IVP PRN (21:53)
[2024-08-12] MEDS ORDERED: Dextrose 5% in Water 1,000 ML IV PRN (22:10)
[2024-08-12] MEDS ORDERED: Glucagon 1 MG/ML KIT IM PRN (22:10)
[2024-08-12] MEDS ORDERED: Dextrose 50% Abboject 50 ML SYRINGE SLOW IVP PRN (22:10)
[2024-08-12] MEDS ORDERED: Meclizine HCl 25 MG TAB ONE (22:20)
[2024-08-12 23:24] VITALS: BMI 46.3
[2024-08-12] MEDS: Aspirin 81 mg Enteric Coated Tablet PO SCH (23:36)
[2024-08-13 05:21] LABS: #Basophils 0.06 10x3/uL (0.0-0.2); %Basophils 0.5 % (0.0-1.0); %Eosinophils 4.5 % (0.0-10.0); %Lymphocytes 26.6 % (21.0-51.0); %Monocytes 5.5 % (0.0-10.0); %Neutrophils 62.5 % (42.0-75.0); Hematocrit 29.5 % (36.0-47.0); Hemoglobin 9.5 g/dL (12.0-16.0); Mean Corpuscular HGB CONC 32.2 g/dL (32.0-36.0); Mean Corpuscular Hemoglobin 28.6 pg (27.0-31.0); Mean Corpuscular Volume 88.9 fL (78.0-98.0); Mean Platelet Volume 9.3 fL (7.4-10.4); Platelet Count 301 10x3/uL (130-400); RBC Distribution Width 14.2 % (11.5-14.5); Red Blood Cell (RBC) Count 3.32 mill/uL (4.20-5.40)
[2024-08-13 05:51] LABS: Anion Gap 14 mmol/L (10-20); BUN (Urea Nitrogen) 50 mg/dL (9.8-20.1); Calc. Creatinine Clearance 36 mL/min (70-130); Calcium 8.3 mg/dL (7.8-10.44); Carbon Dioxide 23 mmol/L (23-31); Chloride 101 mmol/L (98-107); Estimated GFR 18; Glucose 247 mg/dL (80-115); Potassium 3.7 mmol/L (3.5-5.1); Sodium 134 mmol/L (136-145)
[2024-08-13] MEDS ORDERED: traMADol HCl 50 MG TAB PO PRN (08:02)
[2024-08-13] MEDS ORDERED: Albuterol 2.5 MG (3 mL) NEB NEB PRN (08:11)
[2024-08-13] MEDS: Cholecalciferol 1,000 UNITS (25 MCG) TAB PO SCH (09:37)
[2024-08-13] MEDS: Pantoprazole DR 40 MG TAB PO SCH (09:37)
[2024-08-13] MEDS: Cyanocobalamin (Vitamin B-12) 1,000 MCG TAB PO SCH (09:40)
[2024-08-13] MEDS: Aspirin 81 mg Enteric Coated Tablet PO SCH (09:40)
[2024-08-13] MEDS: Floranex 1 GM Packet PO SCH (09:40)
[2024-08-13] MEDS: Docusate 100 MG CAP PO SCH (09:40)
[2024-08-13] MEDS: DorzolamidE/Timolol 2%/0.5% Ophth Soln 10 ml Bottle EA EYE SCH (09:41)
[2024-08-13] MEDS: Brimonidine Tartrate 0.2% Ophth Soln 5 ml Bottle EA EYE SCH (09:41)
[2024-08-13] MEDS: Insulin Glargine 30 UNITS/0.3 ML VIAL SC SCH (09:42)
[2024-08-13] MEDS: Ferrous Sulfate 325 MG TAB PO SCH (09:42)
[2024-08-13] MEDS: Sodium Bicarbonate Tab 325 MG TAB PO SCH (09:43)
[2024-08-13] MEDS: Acetaminophen 325 MG TAB PO PRN (09:43)
[2024-08-13] MEDS: Polyethylene Glycol 3350 17 GM Packet PO SCH (09:43)
[2024-08-13] MEDS: Pramipexole Di-HCl 0.25 MG TAB PO SCH (09:43)
[2024-08-13] MEDS: Insulin Lispro 100 UNIT/ML 10 ML VIAL SC PRN ×2 (12:59→20:35)
[2024-08-13] MEDS: Lorazepam 0.5 MG TAB PO SCH (16:13)
[2024-08-13] MEDS ORDERED: Nystatin Powder 15 GM BOT TOP PRN (17:32)
[2024-08-13] MEDS: traMADol HCl 50 MG TAB PO PRN (18:58)
[2024-08-13] MEDS: Niacin 500 MG TAB PO SCH (20:21)
[2024-08-13] MEDS: Clopidogrel Bisulfate 75 MG TAB PO SCH (20:22)
[2024-08-13] MEDS: Atorvastatin Calcium 40 MG TAB PO SCH (20:22)
[2024-08-13] MEDS ORDERED: Netarsudil Mesylate [Rhopressa] 2.5 ML Drops L EYE SCH (21:00)
[2024-08-14] MEDS: Levothyroxine 175 MCG TAB PO SCH (05:39)
[2024-08-14 06:37] LABS: #Basophils 0.07 10x3/uL (0.0-0.2); %Basophils 0.9 % (0.0-1.0); %Eosinophils 3.9 % (0.0-10.0); %Lymphocytes 28.2 % (21.0-51.0); %Neutrophils 59.5 % (42.0-75.0); Hematocrit 35.1 % (36.0-47.0); Hemoglobin 10.9 g/dL (12.0-16.0); Mean Corpuscular HGB CONC 31.1 g/dL (32.0-36.0); Mean Corpuscular Hemoglobin 27.9 pg (27.0-31.0); Mean Corpuscular Volume 89.8 fL (78.0-98.0); Mean Platelet Volume 9.4 fL (7.4-10.4); Platelet Count 261 10x3/uL (130-400); RBC Distribution Width 14.4 % (11.5-14.5); Red Blood Cell (RBC) Count 3.91 mill/uL (4.20-5.40)
[2024-08-14 06:53] LABS: Anion Gap 16 mmol/L (10-20); BUN (Urea Nitrogen) 47 mg/dL (9.8-20.1); Calc. Creatinine Clearance 50 mL/min (70-130); Calcium 8.6 mg/dL (7.8-10.44); Carbon Dioxide 20 mmol/L (23-31); Chloride 107 mmol/L (98-107); Estimated GFR 27; Glucose 307 mg/dL (80-115); Potassium 4.7 mmol/L (3.5-5.1); Sodium 138 mmol/L (136-145)
[2024-08-14 11:50] VITALS: BP 134/63; TEMP 97.7
== END 2024-08-14 13:35 | disposition home health service (06) ==
LOC: ERS 19:58 → 2NO 21:46
PROVIDERS: ADMIT Internal Medicine; ATTEND Internal Medicine
DX: R29.818 Other symptoms and signs involving the nervous system (principal); R42 Dizziness and giddiness; I13.0 Hypertensive heart and chronic kidney disease with heart failure and stage 1 through stage 4 chronic kidney disease, or unspecified chronic kidney disease; N18.4 Chronic kidney disease, stage 4 (severe); I50.42 Chronic combined systolic (congestive) and diastolic (congestive) heart failure; E03.9 Hypothyroidism, unspecified; E11.22 Type 2 diabetes mellitus with diabetic chronic kidney disease; I69.352 Hemiplegia and hemiparesis following cerebral infarction affecting left dominant side; D63.1 Anemia in chronic kidney disease; E87.1 Hypo-osmolality and hyponatremia; R22.42 Localized swelling, mass and lump, left lower limb; Z87.891 Personal history of nicotine dependence; Z96.653 Presence of artificial knee joint, bilateral; Z79.51 Long term (current) use of inhaled steroids; Z79.899 Other long term (current) drug therapy; Z79.4 Long term (current) use of insulin; Z79.02 Long term (current) use of antithrombotics/antiplatelets
CPT/HCPCS: 70450; 70551; 71045; 80048 ×2; 80053; 82962 ×2; 83605; 83880; 84145; 84484; 85025 ×3; 85610; 85730; 87040 ×2; 87149 ×2; 93005; 93971; 97116 ×2; 97530 ×2; 97535; G0378 ×4; J1815; 36415; 36416

== ENCOUNTER 2024-10-21 04:21 | Emergency (ER) | payer MEDICARE ==
[2024-10-21] MEDS ORDERED: Acetaminophen 500 MG TAB ONE (04:57)
[2024-10-21] MEDS ORDERED: Metoclopramide HCl 10 MG TAB ONE (04:58)
== END 2024-10-21 06:23 | disposition home or self-care (01) ==
LOC: ERS 04:21
DX: I10 Essential (primary) hypertension (principal); I12.9 Hypertensive chronic kidney disease with stage 1 through stage 4 chronic kidney disease, or unspecified chronic kidney disease; E11.22 Type 2 diabetes mellitus with diabetic chronic kidney disease; N18.4 Chronic kidney disease, stage 4 (severe); E11.319 Type 2 diabetes mellitus with unspecified diabetic retinopathy without macular edema; Z79.899 Other long term (current) drug therapy; Z79.82 Long term (current) use of aspirin; Z79.85 Long-term (current) use of injectable non-insulin antidiabetic drugs; Z79.4 Long term (current) use of insulin
CPT/HCPCS: 99283

== ENCOUNTER 2025-05-10 06:20 | Emergency (ER) | payer MEDICARE ==
[2025-05-10] MEDS ORDERED: Acetaminophen 500 MG TAB ONE (07:34)
== END 2025-05-10 08:11 | disposition home or self-care (01) ==
LOC: ERS 06:20
DX: M79.662 Pain in left lower leg (principal); I12.9 Hypertensive chronic kidney disease with stage 1 through stage 4 chronic kidney disease, or unspecified chronic kidney disease; N18.4 Chronic kidney disease, stage 4 (severe); E11.22 Type 2 diabetes mellitus with diabetic chronic kidney disease; E11.40 Type 2 diabetes mellitus with diabetic neuropathy, unspecified; E11.319 Type 2 diabetes mellitus with unspecified diabetic retinopathy without macular edema; Z86.73 Personal history of transient ischemic attack (TIA), and cerebral infarction without residual deficits; W54.1XXA Struck by dog, initial encounter
CPT/HCPCS: 99283

== ENCOUNTER 2025-05-12 12:52 | Inpatient (IN) | payer MEDICARE ==
[~2025-05-12 12:52] MED LIST changes: -Heparin 1,000 UNITS/ML VIAL ONE; +Iopamidol 370 76% 100 ML VIAL ONE
[2025-05-12 13:14] LABS: #Basophils 0.11 10x3/uL (0.0-0.2); #Eosinophils 0.56 10x3/uL (0.0-0.7); #Monocytes 0.74 10x3/uL (0.11-0.59); #Neutrophils 7.83 10x3/uL (1.40-6.50); %Basophils 0.9 % (0.0-1.0); %Eosinophils 4.8 % (0.0-10.0); %Lymphocytes 20.2 % (21.0-51.0); %Monocytes 6.4 % (0.0-10.0); %Neutrophils 67.4 % (42.0-75.0); Hematocrit 32.1 % (36.0-47.0); Hemoglobin 9.9 g/dL (12.0-16.0); Mean Corpuscular Hemoglobin 28.1 pg (27.0-31.0); Mean Corpuscular Volume 91.2 fL (78.0-98.0); Platelet Count 334 10x3/uL (130-400); Red Blood Cell (RBC) Count 3.52 mill/uL (4.20-5.40); White Blood Cell (WBC) Count 11.63 10x3/uL (4.8-10.8)
[2025-05-12 13:29] LABS: ALT (SGPT) Less than 7 U/L (Less than 34); AST (SGOT) 14 U/L (11-34); Albumin 3.0 g/dL (3.1-4.5); Alkaline Phosphatase 108 U/L (40-110); Anion Gap 14 mmol/L (10-20); BUN (Urea Nitrogen) 39 mg/dL (9.8-20.1); Bilirubin, Total 0.4 mg/dL (0.3-1.2); Calc. Creatinine Clearance 0 mL/min (70-130); Calcium 9.0 mg/dL (7.8-10.44); Carbon Dioxide 24 mmol/L (23-31); Chloride 108 mmol/L (98-107); Globulin 4.3 g/dL (2.4-3.5); Glucose 96 mg/dL (80-115); Potassium 4.3 mmol/L (3.5-5.1); Sodium 142 mmol/L (136-145)
[2025-05-12 14:01] LABS: INR-International Normal Ratio 1.2; Prothrombin Time 14.9 sec (12.0-14.7)
[2025-05-12 14:19] LABS: PTT 128.3 sec (22.9-36.1)
[2025-05-12] MEDS ORDERED: Nitroglycerin 0.4 MG TAB (25 Tab Bottle) SL PRN (15:22)
[2025-05-12] MEDS ORDERED: Senokot S 8.6-50 MG TAB PO PRN (15:38)
[2025-05-12] MEDS ORDERED: Glucagon 1 MG/ML KIT IM PRN (15:38)
[2025-05-12] MEDS ORDERED: Bisacodyl 10 MG SUPP PR PRN (15:38)
[2025-05-12] MEDS ORDERED: Dextrose 50% Abboject 50 ML SYRINGE SLOW IVP PRN (15:38)
[2025-05-12] MEDS: Acetaminophen/Codeine 30-300mg Tablet PO PRN ×2 (16:30→19:26)
[2025-05-12 18:45] LABS: #Basophils 0.09 10x3/uL (0.0-0.2); #Eosinophils 0.44 10x3/uL (0.0-0.7); #Monocytes 0.73 10x3/uL (0.11-0.59); #Neutrophils 9.26 10x3/uL (1.40-6.50); %Basophils 0.7 % (0.0-1.0); %Eosinophils 3.4 % (0.0-10.0); %Lymphocytes 18.7 % (21.0-51.0); %Monocytes 5.6 % (0.0-10.0); %Neutrophils 71.1 % (42.0-75.0); Hematocrit 23.3 % (36.0-47.0); Hemoglobin 7.2 g/dL (12.0-16.0); Mean Corpuscular Hemoglobin 28.6 pg (27.0-31.0); Mean Corpuscular Volume 92.5 fL (78.0-98.0); Platelet Count 284 10x3/uL (130-400); Red Blood Cell (RBC) Count 2.52 mill/uL (4.20-5.40); White Blood Cell (WBC) Count 13.02 10x3/uL (4.8-10.8)
[2025-05-12 19:03] LABS: INR-International Normal Ratio 1.1; PTT 24.5 sec (22.9-36.1); Prothrombin Time 14.1 sec (12.0-14.7)
[2025-05-12 19:28] LABS: ALT (SGPT) 11 U/L (Less than 34); AST (SGOT) 69 U/L (11-34); Albumin 2.2 g/dL (3.1-4.5); Alkaline Phosphatase 81 U/L (40-110); Anion Gap 12 mmol/L (10-20); BUN (Urea Nitrogen) 41 mg/dL (9.8-20.1); Bilirubin, Total 0.3 mg/dL (0.3-1.2); Calc. Creatinine Clearance 45 mL/min (70-130); Calcium 7.8 mg/dL (7.8-10.44); Carbon Dioxide 22 mmol/L (23-31); Chloride 112 mmol/L (98-107); Globulin 3.1 g/dL (2.4-3.5); Glucose 234 mg/dL (80-115); Potassium 4.6 mmol/L (3.5-5.1); Sodium 141 mmol/L (136-145)
[2025-05-12] MEDS: Ondansetron PF 4 MG/2 ML Vial IVP PRN (21:33)
[2025-05-12 23:29] LABS: Hematocrit 27.5 % (36.0-47.0); Hemoglobin 8.5 g/dL (12.0-16.0); Mean Corpuscular Hemoglobin 28.1 pg (27.0-31.0); Mean Corpuscular Volume 90.8 fL (78.0-98.0); Platelet Count 286 10x3/uL (130-400); Red Blood Cell (RBC) Count 3.03 mill/uL (4.20-5.40); White Blood Cell (WBC) Count 13.90 10x3/uL (4.8-10.8)
[2025-05-13 04:33] LABS: #Basophils 0.07 10x3/uL (0.0-0.2); #Eosinophils 0.21 10x3/uL (0.0-0.7); #Monocytes 0.69 10x3/uL (0.11-0.59); #Neutrophils 8.53 10x3/uL (1.40-6.50); %Basophils 0.6 % (0.0-1.0); %Eosinophils 1.8 % (0.0-10.0); %Lymphocytes 17.7 % (21.0-51.0); %Monocytes 5.9 % (0.0-10.0); %Neutrophils 73.6 % (42.0-75.0); Hematocrit 28.4 % (36.0-47.0); Hemoglobin 9.1 g/dL (12.0-16.0); Mean Corpuscular Hemoglobin 28.7 pg (27.0-31.0); Mean Corpuscular Volume 89.6 fL (78.0-98.0); Platelet Count 275 10x3/uL (130-400); Red Blood Cell (RBC) Count 3.17 mill/uL (4.20-5.40); White Blood Cell (WBC) Count 11.60 10x3/uL (4.8-10.8)
[2025-05-13 04:52] LABS: Anion Gap 18 mmol/L (10-20); BUN (Urea Nitrogen) 42 mg/dL (9.8-20.1); Calc. Creatinine Clearance 45 mL/min (70-130); Calcium 8.0 mg/dL (7.8-10.44); Carbon Dioxide 21 mmol/L (23-31); Cardiac Risk 4.3 (Less than 4.5); Chloride 108 mmol/L (98-107); Cholesterol 99 mg/dl (< 200 Desired); Glucose 168 mg/dL (80-115); HDL Cholesterol 23 mg/dL (>60 Neg Risk); LDL Cholesterol, Calculated 42 mg/dL; Magnesium 2.0 mg/dL (1.6-2.6); Potassium 4.5 mmol/L (3.5-5.1); Sodium 142 mmol/L (136-145); Triglycerides 172 mg/dL (Less than 150)
[2025-05-13 04:53] VITALS: BMI 48.7
[2025-05-13 05:11] LABS: ALT (SGPT) 40 U/L (Less than 34); AST (SGOT) 171 U/L (11-34); Albumin 2.6 g/dL (3.1-4.5); Alkaline Phosphatase 139 U/L (40-110); Bilirubin, Direct 0.2 mg/dL (0.1-0.3); Bilirubin, Total 0.6 mg/dL (0.3-1.2)
[2025-05-13] MEDS: Aspirin 81 mg Enteric Coated Tablet PO SCH (08:38)
[2025-05-13] MEDS: Carvedilol 3.125 MG TAB PO SCH (08:39)
[2025-05-13] MEDS ORDERED: Aspirin 81 mg Enteric Coated Tablet PO SCH (09:00)
[2025-05-13] MEDS ORDERED: Netarsudil Mesylate [Rhopressa] 2.5 ML Drops L EYE SCH (21:00)
[2025-05-13] MEDS: Niacin 500 MG TAB PO SCH (21:01)
[2025-05-13] MEDS: Sodium Bicarbonate Tab 325 MG TAB PO SCH (21:01)
[2025-05-13] MEDS: DorzolamidE/Timolol 2%/0.5% Ophth Soln 10 ml Bottle EA EYE SCH (21:02)
[2025-05-13] MEDS: Brimonidine Tartrate 0.2% Ophth Soln 5 ml Bottle EA EYE SCH (21:02)
[2025-05-14 04:04] LABS: #Basophils 0.07 10x3/uL (0.0-0.2); #Eosinophils 0.24 10x3/uL (0.0-0.7); #Monocytes 1.00 10x3/uL (0.11-0.59); #Neutrophils 11.59 10x3/uL (1.40-6.50); %Basophils 0.5 % (0.0-1.0); %Eosinophils 1.6 % (0.0-10.0); %Lymphocytes 13.6 % (21.0-51.0); %Monocytes 6.7 % (0.0-10.0); %Neutrophils 77.1 % (42.0-75.0); Hematocrit 25.0 % (36.0-47.0); Hemoglobin 7.9 g/dL (12.0-16.0); Mean Corpuscular Hemoglobin 28.6 pg (27.0-31.0); Mean Corpuscular Volume 90.6 fL (78.0-98.0); Platelet Count 253 10x3/uL (130-400); Red Blood Cell (RBC) Count 2.76 mill/uL (4.20-5.40); White Blood Cell (WBC) Count 15.02 10x3/uL (4.8-10.8)
[2025-05-14 04:23] LABS: Anion Gap 14 mmol/L (10-20); BUN (Urea Nitrogen) 43 mg/dL (9.8-20.1); Calc. Creatinine Clearance 47 mL/min (70-130); Calcium 8.0 mg/dL (7.8-10.44); Carbon Dioxide 21 mmol/L (23-31); Chloride 106 mmol/L (98-107); Glucose 215 mg/dL (80-115); Magnesium 2.1 mg/dL (1.6-2.6); Potassium 4.7 mmol/L (3.5-5.1); Sodium 136 mmol/L (136-145)
[2025-05-14] MEDS: Acetaminophen 325 MG TAB PO PRN (04:24)
[2025-05-14] MEDS: Levothyroxine 175 MCG TAB PO SCH (06:24)
[2025-05-14] MEDS: Floranex 1 GM Packet PO SCH (08:33)
[2025-05-14] MEDS: Cyanocobalamin (Vitamin B-12) 1,000 MCG TAB PO SCH (08:34)
[2025-05-14 12:16] LABS: Bacteria/HPF 4+ HPF (None Seen); CAUTI Indications for Culture Fever or rigors; Glucose, Urine (Dipstick) Normal (Negative); Leukocyte 500 Leu/uL (Negative); Protein, Urine (Dipstick) 30 mg/dL (Neg-Trace); Specific Gravity, Urine 1.015 (1.002-1.036); WBC/HPF Greater than 50 HPF (0-3)
[2025-05-14 12:19] LABS: Urine Culture Reflex Yes Yes
[2025-05-14] MEDS: cefTRIAXone\\ROCEPHIN 1 GM in Sodium Chloride 0.9% 100 ML IVPB SCH (16:27)
[2025-05-15 03:54] LABS: #Basophils 0.08 10x3/uL (0.0-0.2); #Eosinophils 0.23 10x3/uL (0.0-0.7); #Monocytes 1.24 10x3/uL (0.11-0.59); #Neutrophils 12.22 10x3/uL (1.40-6.50); %Basophils 0.5 % (0.0-1.0); %Eosinophils 1.4 % (0.0-10.0); %Lymphocytes 14.4 % (21.0-51.0); %Monocytes 7.6 % (0.0-10.0); %Neutrophils 75.4 % (42.0-75.0); Hematocrit 26.7 % (36.0-47.0); Hemoglobin 8.6 g/dL (12.0-16.0); Mean Corpuscular Hemoglobin 28.9 pg (27.0-31.0); Mean Corpuscular Volume 89.6 fL (78.0-98.0); Platelet Count 239 10x3/uL (130-400); Red Blood Cell (RBC) Count 2.98 mill/uL (4.20-5.40); White Blood Cell (WBC) Count 16.22 10x3/uL (4.8-10.8)
[2025-05-15 04:12] LABS: Anion Gap 14 mmol/L (10-20); BUN (Urea Nitrogen) 44 mg/dL (9.8-20.1); Calc. Creatinine Clearance 44 mL/min (70-130); Calcium 8.0 mg/dL (7.8-10.44); Carbon Dioxide 20 mmol/L (23-31); Chloride 104 mmol/L (98-107); Glucose 240 mg/dL (80-115); Magnesium 2.1 mg/dL (1.6-2.6); Potassium 4.3 mmol/L (3.5-5.1); Sodium 134 mmol/L (136-145)
[2025-05-15] MEDS: cefTRIAXone (ROCEPHIN) 1 GM VIAL ONE (15:30)
[2025-05-15 20:18] VITALS: BP 124/73; TEMP 98.5
== END 2025-05-15 22:09 | disposition short-term general hospital (02) | DRG 281 ==
LOC: ERS 12:52 → CCL 13:15 → CCU 15:10 → PCU 05-13 19:55
PROVIDERS: ADMIT Internal Medicine Cardiovascular Disease; ATTEND Hospitalist
PROC: B2111ZZ Fluoroscopy of Multiple Coronary Arteries using Low Osmolar Contrast (ICD-10-PCS; principal; 2025-05-12)
PROC: 4A023N7 Measurement of Cardiac Sampling and Pressure, Left Heart, Percutaneous Approach (ICD-10-PCS; 2025-05-12)
PROC: B2151ZZ Fluoroscopy of Left Heart using Low Osmolar Contrast (ICD-10-PCS; 2025-05-12)
PROC: 30233N1 Transfusion of Nonautologous Red Blood Cells into Peripheral Vein, Percutaneous Approach (ICD-10-PCS; 2025-05-13)
PROC: 3E03329 Introduction of Other Anti-infective into Peripheral Vein, Percutaneous Approach (ICD-10-PCS; 2025-05-13)
DX: I21.19 ST elevation (STEMI) myocardial infarction involving other coronary artery of inferior wall (principal); I69.952 Hemiplegia and hemiparesis following unspecified cerebrovascular disease affecting left dominant side; N18.4 Chronic kidney disease, stage 4 (severe); N39.0 Urinary tract infection, site not specified; E11.22 Type 2 diabetes mellitus with diabetic chronic kidney disease; E03.9 Hypothyroidism, unspecified; I12.9 Hypertensive chronic kidney disease with stage 1 through stage 4 chronic kidney disease, or unspecified chronic kidney disease; M25.569 Pain in unspecified knee; E11.319 Type 2 diabetes mellitus with unspecified diabetic retinopathy without macular edema; E78.5 Hyperlipidemia, unspecified; G25.81 Restless legs syndrome; E66.01 Morbid (severe) obesity due to excess calories; S30.1XXA Contusion of abdominal wall, initial encounter; E11.42 Type 2 diabetes mellitus with diabetic polyneuropathy; Z96.653 Presence of artificial knee joint, bilateral; Z98.890 Other specified postprocedural states; Z79.899 Other long term (current) drug therapy; M79.662 Pain in left lower leg; W54.1XXA Struck by dog, initial encounter
CPT/HCPCS: 36140; 36415; 36416; 36430; 71045; 74176; 80048; 80053; 80061; 80076; 81001; 83036; 83735; 84443; 84484; 85025; 85347; 85610; 85730; 86141; 86850; 86900; 86901; 87040; 87077; 87086; 87186; 93005; 93010; 93306; 93458; 93798; 94760; 99283; C1769; C1887; C1894; J0696; J1815; J2405; P9016; Q9967